=== PATIENT | female | born 1950 | race Caucasian/White ===

== ENCOUNTER 2019-06-01 11:59 | Inpatient (IN) | payer MEDICARE ==
[~2019-06-01] VITALS: Ht 152.4 cm; Wt 94.8 kg
[~2019-06-01 11:59] MED LIST: ASPIRIN81 M1 PO; GLUCOPHAGE500 MG PO
[2019-06-01] MEDS ORDERED: OCTREOTIDE ACETATE 0.1 MG/ML 100MCG AMP IV STA (12:16)
[2019-06-01] MEDS ORDERED: PANTOPRAZOLE 40 MG 10ML VIAL IV STA (12:16)
--- NOTE | 2019-06-01 12:25 | NUR ---
PATIENT PLACED IN ROOM 5
[2019-06-01] MEDS ORDERED: PROTONIX 200MG/SODIUM CHLORIDE 0.9% 250 ML BAG IV SCH (12:30)
--- NOTE | 2019-06-01 13:22 | Diagnostic Imaging Report ---
Exam: KUB - 2 views Indication: Upper GI bleed Comparison: None Findings: Nonobstructive bowel gas pattern. No free air. Status post cholecystectomy. Mild degenerative changes of the visualized spine and both hip joints. No acute osseous injury. Impression: Nonobstructive bowel gas pattern. No free air. Signed by: Amos Ling MD on 06/01/2019 1:19 PM
[2019-06-01 13:39] LABS: BASOPHILS % 0.2 % (0.0-1.0); EOSINOPHILS # (AUTO) 0.1 (0.0-0.4); EOSINOPHILS % 1.3 % (0.0-6.0); HEMOGLOBIN 7.9 g/dL (12.0-16.0); LYMPHOCYTES % 18.8 % (18.0-39.1); MEAN CORPUSCULAR HEMOGLOBIN 31.9 pg (28-32); MEAN CORPUSCULAR HGB CONC 32.9 g/dL (31-35); MEAN CORPUSCULAR VOLUME 96.8 fL (81-99); MONOCYTES # (AUTO) 0.9 (0.2-0.8); MONOCYTES % 7.9 % (4.4-11.3); NEUTROPHILS # (AUTO) 7.6 (2.1-6.9); NEUTROPHILS % 70.8 % (38.7-80.0); PLATELET COUNT 305 x10e3/uL (140-360); RED BLOOD COUNT 2.48 x10e6/uL (3.6-5.1); RED CELL DISTRIBUTION WIDTH 12.9 % (11.7-14.4)
[2019-06-01] MEDS: PANTOPRAZOL 40MG/SOD CHL 0.9% 50 ML IV SCH ×2 (13:44→18:55)
--- NOTE | 2019-06-01 14:01 | NUR ---
REPORT TO CLIVE Samuel
[2019-06-01 14:07] LABS: INR 0.98; PROTHROMBIN TIME 13.5 seconds (11.9-14.5)
[2019-06-01 14:08] LABS: PARTIAL THROMBOPLASTIN TIME 24.9 seconds (23.8-35.5)
[2019-06-01 14:17] LABS: ALANINE AMINOTRANSFERASE 17 IU/L (0-55); ALBUMIN 3.5 g/dL (3.5-5.0); ALBUMIN/GLOBULIN RATIO 1.2 (0.8-2.0); ALKALINE PHOSPHATASE 47 IU/L (40-150); ANION GAP 13.9 mmol/L (8-16); BLOOD UREA NITROGEN 16 mg/dL (7-26); BUN/CREATININE RATIO 18 (6-25); CALCIUM 9.2 mg/dL (8.4-10.2); CARBON DIOXIDE 24 mmol/L (22-29); CHLORIDE 97 mmol/L (98-107); CREATININE, SERUM 0.91 mg/dL (0.57-1.11); EST GLOMERULAR FILTRATION RATE > 60 ML/MIN (60-); GLUCOSE 121 mg/dL (74-118); POTASSIUM 3.9 mmol/L (3.5-5.1); SODIUM 131 mmol/L (136-145)
--- NOTE | 2019-06-01 14:35 | NUR ---
Report received from YONNY Scott. Pt sitting comfortably on stretcher. Pt remains on NIBP, pulse ox and cardiac monitoring. Vitals stable. Bed locked in lowest position. Fall precautions in place. Nephew at bedside. WIll continue to monitor.
[2019-06-01] MEDS ORDERED: LEVOTHYROXINE25 MCG PO (15:40)
[2019-06-01] MEDS ORDERED: GLIPIZIDE ER2.5 MG PO (15:40)
[2019-06-01] MEDS ORDERED: DONEPEZIL HCL23 MG PO (15:40)
[2019-06-01] MEDS ORDERED: LISINOPRIL10 MG PO (15:40)
[2019-06-01] MEDS ORDERED: ATORVASTATIN CA20 MG PO (15:40)
--- NOTE | 2019-06-01 17:10 | NUR ---
Pt brought to the restroom in wheelchair. Pt tolerated well.
[2019-06-01 19:49] LABS: HEMOGLOBIN 7.4 g/dL (12.0-16.0)
--- NOTE | 2019-06-02 00:30 | NUR ---
RECEIVED BEDSIDE REPORT FROM Adi BURNS RN.
--- NOTE | 2019-06-02 00:30 | NUR ---
Bedside shift report given to YONNY Geiger. Pt sitting in bed comfortably. RR even and unlabored. NAD noted. Vitals stable. Pt denies any pain or discomfort at the present time.
[2019-06-02 01:14] LABS: HEMOGLOBIN 7.2 g/dL (12.0-16.0)
[2019-06-02] MEDS ORDERED: SODIUM CHLORIDE 0.9% 250ML 250 ML IV ONE (02:15)
[2019-06-02] MEDS: PANTOPRAZOL 40MG/SOD CHL 0.9% 50 ML IV SCH ×5 (03:35→20:33)
--- NOTE | 2019-06-02 04:45 | NUR ---
ASSISTED PT TO RESTROOM. SMALL AMOUNT OF STOOL NOTED. STOOL DARK BROWN IN COLOR.
--- NOTE | 2019-06-02 04:50 | NUR ---
ASSISTED PT BACK TO BED. PT LAYING COMFORTABLY. PT GIVEN WARM BLANKETS. NO ACUTE DISTRESS NOTED AT THIS TIME. HOSPITAL BED LOCK AND LOW IN POSITION. HEAD SIDE RAILS UP AND CALL LIGHT GIVEN TO PT IF IN NEED OF ASSISTANCE.
--- NOTE | 2019-06-02 06:40 | NUR ---
PT ASSISTED TO RESTROOM USING WHEELCHAIR. PT HAD SMALL BM. SMALL SMEAR OF BRIGHT RED BLOOD NOTED ON TOILET PAPER.
--- NOTE | 2019-06-02 06:45 | NUR ---
ASSISTED PT BACK TO HOSPITAL BED USING WHEELCHAIR. PT ASSISTED INTO BED. NO ACUTE DISTRESS NOTED AT THIS TIME. PT LAYING IN BED COMFORTABLY. BED IS LOCKED AND IN LOWEST POSITION.
[2019-06-02 06:55] LABS: HEMATOCRIT 22.4 % (34.2-44.1)
[2019-06-02 07:01] LABS: BLOOD UREA NITROGEN 13 mg/dL (7-26); BUN/CREATININE RATIO 14 (6-25); CALCIUM 8.8 mg/dL (8.4-10.2); CARBON DIOXIDE 23 mmol/L (22-29); CHLORIDE 101 mmol/L (98-107); EST GLOMERULAR FILTRATION RATE > 60 ML/MIN (60-); GLUCOSE 125 mg/dL (74-118); SODIUM 134 mmol/L (136-145)
--- NOTE | 2019-06-02 07:05 | NUR ---
SON HERE; EDUARD DEUTSCH REGARDING H/H DROP; VSS.
--- NOTE | 2019-06-02 07:10 | NUR ---
REPORT GIVEN TO Alexandra BAÑUELOS RN DAY SHIFT NURSE.
--- NOTE | 2019-06-02 07:23 | NUR ---
SPOKE WITH DR Saravanan DEUTSCH AND OK TO GIVE 2 UNITS PRBC'S AND KEEP NPO AND WILL EGD PT TODAY.
[2019-06-02] MEDS ORDERED: SODIUM CHLORIDE 0.9% 250ML 250 ML ONE ×2 (08:26→16:06)
--- NOTE | 2019-06-02 08:27 | NUR ---
CONSENT SIGNED ON CHART/PRBC AND ENDO
[2019-06-02] MEDS ORDERED: MIDAZOLAM HCL 2 MG/2 ML VIAL ONE (08:51)
[2019-06-02] MEDS ORDERED: FENTANYL CITRATE/PF 100MCG/2 ML INJ ONE (08:51)
[2019-06-02] MEDS ORDERED: PROPOFOL IV EMULSION 10 MG/ML 50 ML VIAL ONE (08:58)
[2019-06-02] MEDS ORDERED: DEXTROSE 50% SYRINGE 50 ML IV PRN (13:15)
--- OUTSIDE RECORDS SUMMARY | 2019-06-02 14:05 | XMS REPORT ---
Author Author [facility] Address Unknown Phone Unavailable Care Team Providers Care Cut File Clerk Name Role Phone Ervin OSPINA Unavailable Unavailable Problems This patient has no known problems. Allergies, Adverse Reactions, Alerts This patient has no known allergies or adverse reactions. Medications This patient has no known medications. Results Test Description Test Time Test Comments Text Results Atomic Results Result Comments ABDOMEN-1VIEW ([facility]) 2019-06-01 13:18:[address] [address] Patient Name: RAYMOND PEREA MR #: [id number] : 1950 Age/Sex: 69/F Req #: [id number] Adm Physician: Ordered by: ROSALINDA OSPINA MD Report #: [id number] Location: ER Room/Bed: Procedure: [id number] DX/ABDOMEN-1VIEW ([facility]) Exam Date: 06/01/19 Exam Time: 1230 REPORT STATUS: Signed Exam: KUB - 2 views Indication: Upper GI bleed Comparison: None Findings: Nonobstructive bowel gas pattern. No free air. Status post cholecystectomy. Mild degenerative changes of the visualized spine and both hip joints. No acute osseous injury. Impression: Nonobstructive bowel gas pattern. No free air. Signed by: Destini Larson MD on 06/01/2019 1:19 PM Dictated By: DESTINI LARSON MD 131 Transcribed By: WASHINGTON on 06/01/191318 COPY TO: ROSALINDA OSPINA MD
--- NOTE | 2019-06-02 15:54 | NUR ---
Received patient at this time s/p EGD with 2 ulcers found per reporting nurse. Patient with Anemia and GI bleed, H/H 7.0, had 1 PRBC and 1 unit left to give, VSS, no c/o pains, ambulatory, PMH significant for HTN, chronic back pain, non-contributory at this time, IV line in place, will monitor.
[2019-06-02 16:10] VITALS: BP 142/64
[2019-06-02] MEDS: LISINOPRIL 10 MG TAB PO SCH (16:12)
[2019-06-02] MEDS: METFORMIN HCL 500 MG TAB PO SCH (16:13)
[2019-06-02] MEDS: INSULIN REGULAR, HUMAN 100 UNIT/1 ML 3ML VIAL SQ SCH ×2 (16:13→20:40)
[2019-06-02 16:23] VITALS: BP 142/64
[2019-06-02] MEDS ORDERED: METFORMIN HCL 500 MG PO SCH (17:00)
--- NOTE | 2019-06-02 17:13 | NUR ---
Noted PRBC cancelled, call to lab and confirmed second unit was cancelled. Call to attending at this time to clarify if to give or to hold
--- NOTE | 2019-06-02 17:23 | NUR ---
Call back from Dr. Navarro covering for Dr. Larios to clarify on PRBC second unit and he wants a CBC drawn in the morning and if Hgb is not >7.0 to hold unit
[2019-06-02 18:20] LABS: HEMATOCRIT 25.5 % (34.2-44.1); HEMOGLOBIN 8.1 g/dL (12.0-16.0)
--- NOTE | 2019-06-02 19:15 | NUR ---
Received patient awake, not in distress, call light within easy reach, advised to call anytime, will continue to monitor
[2019-06-02 20:00] VITALS: BP 119/51
--- NOTE | 2019-06-02 20:11 | Operative Report ---
DATE OF PROCEDURE: 06/02/2019 SURGEON: David Larios MD PROCEDURE: EGD with biopsies. INDICATIONS FOR EGD: Melena, anemia. MEDICATIONS: The patient was done under MAC. Please see anesthesiologist's note. DESCRIPTION OF PROCEDURE: With the patient in left lateral decubitus position, a flexible fiberoptic Olympus gastroscope was introduced into the esophagus under direct visualization without any difficulty. There was some patchy erythema noted in distal esophagus. The scope was then advanced with ease into the stomach. Mucosa overlying the antrum and the body revealed some patchy erythema, [id number]-pf-rzqqobtz edema and biopsies were obtained and sent to stain for H pylori. Two ulcers were noted in the distal antrum. The largest was approximately 8 mm in size both with heaped up margins without active bleeding or stigmata of recent hemorrhage. The pylorus was of normal contour and shape, was intubated with ease and the scope was advanced all the way to the second portion of the duodenum. The scope was then withdrawn slowly. Mucosa overlying the proximal second portion and the duodenal bulb appeared to be within normal limits. The scope was then withdrawn back into the stomach and retroflexed. Mucosa overlying the fundus and cardia appeared to be within normal limits. The scope was then straightened out. It was subsequently withdrawn. The patient tolerated the procedure well. IMPRESSION: 1. Mild distal esophagitis. 2. Gastritis, biopsied. Biopsies sent to stain for Helicobacter pylori. 3. Gastric ulcers, antrum x2 with the largest approximately 8 mm in size. Both with heaped up margins without active bleeding or stigmata of recent hemorrhage. PLAN: Follow up histology. Continue current therapy. Initiate clear liquid diet. David Larios MD [facility] [place]AIXA /[id number] cc: Yasmany Larios MD
[2019-06-02] MEDS: DONEPEZIL HCL 23 MG PO SCH (20:36)
[2019-06-02 21:00] VITALS: BP 119/51
[2019-06-02 23:28] LABS: HEMATOCRIT 23.5 % (34.2-44.1); HEMOGLOBIN 7.5 g/dL (12.0-16.0)
[2019-06-03] VITALS (7 sets, daily range): BP systolic 111–134; BP diastolic 53–61
--- NOTE | 2019-06-03 | NUR ---
Dr. Larios came, no new orders
[2019-06-03] MEDS: PANTOPRAZOL 40MG/SOD CHL 0.9% 50 ML IV SCH ×5 (01:14→20:00)
[2019-06-03] MEDS: LEVOTHYROXINE SODIUM 50 MCG TAB PO SCH (06:12)
[2019-06-03 06:17] LABS: HEMATOCRIT 24.2 % (34.2-44.1); HEMOGLOBIN 7.9 g/dL (12.0-16.0)
--- NOTE | 2019-06-03 07:20 | NUR ---
Patient is alert, no active bleeding noted, will continue to monitor closely
[2019-06-03] MEDS: INSULIN REGULAR, HUMAN 100 UNIT/1 ML 3ML VIAL SQ SCH ×4 (07:30→21:00)
[2019-06-03] MEDS: GLIPIZIDE 5 MG TAB ER PO SCH (07:30)
[2019-06-03] MEDS: METFORMIN HCL 500 MG TAB PO SCH ×2 (08:00→17:18)
--- NOTE | 2019-06-03 08:19 | NUR ---
Obtained orders for IV fluids from attending given NPO status
[2019-06-03] MEDS: LISINOPRIL 10 MG TAB PO SCH (08:32)
[2019-06-03] MEDS ORDERED: LEVOTHYROXINE SODIUM 25 MCG TABLET PO SCH (09:00)
[2019-06-03] MEDS ORDERED: GLIPIZIDE 2.5 MG TABCR PO SCH (09:00)
[2019-06-03] MEDS: ATORVASTATIN 20 MG TAB PO SCH (09:47)
[2019-06-03] MEDS: DEXTROSE 5%/0.45% SOD CHL 1,000 ML IV SCH ×2 (09:47→21:00)
--- NOTE | 2019-06-03 11:41 | NUR ---
Rounds done, patient ok to have colonoscopy OP. Awaiting MD rounds for DC
--- NOTE | 2019-06-03 13:49 | NUR ---
Patient with a lot of diarrhea this morning, notified Dr. Navarro, completing rounds at this time and will place orders.
[2019-06-03] MEDS ORDERED: LOPERAMIDE HCL 2 MG CAP PO PRN (16:15)
--- NOTE | 2019-06-03 17:16 | Progress Note ---
DATE: Internal Medicine Progress Note SUBJECTIVE: The patient is doing well except for diarrhea. OBJECTIVE: HEART: Regular rhythm. Normal S1, S2 sound. LUNGS: Clear bilaterally. ABDOMEN: Soft. EXTREMITIES: Show no evidence of cyanosis or hematoma. VITAL SIGNS: Blood pressure 122/53, temperature 96.4, heart rate 64 per minute, respiratory rate 18 per minute, and oxygen saturation 98%. LABORATORY DATA: On the blood work on the BMP; sodium 134, potassium 4.0, chloride 101, CO2 23, BUN 13, and creatinine 0.90. Glucose 125. On CBC, white blood count 10.7, hemoglobin 9.0, hematocrit 28.0, and platelet count 305,000. PT 13.5. INR was 0.98. PTT 24.9. AST 14 and ALT 17. Total bilirubin 0.4. Alkaline phosphatase 47. ASSESSMENT: 1. Acute anemia secondary to gastrointestinal bleed. 2. Gastric bleed. 3. Hypertension. 4. Uncontrolled diabetes mellitus type 2. 5. Hypothyroidism. PLAN OF TREATMENT: 1. We are going to continue monitoring hemoglobin and hematocrit. The patient already had an EGD which showed gastritis, gastric ulcers, and mild distal esophagitis with no active GI bleed. She is going to have a colonoscopy apparently. 2. Continue Protonix IV. Continue IV fluids at 80 mL an hour, continue Lipitor 20 mg daily. Glipizide 10 mg daily. Lisinopril 10 mg daily. Levothyroxine 50 mcg daily. Continue monitoring blood sugar before meals and at bedtime. Metformin 500 mg twice a day. Hemoglobin and hematocrit so far stable. MD RUIZ Galeano/AXIA /[id number]
[2019-06-03 17:55] LABS: HEMATOCRIT 25.7 % (34.2-44.1); HEMOGLOBIN 8.3 g/dL (12.0-16.0)
--- NOTE | 2019-06-03 18:59 | NUR ---
Patient OOB and ambulated several times, diarrhea episodes subsiding, no hematochezia noted, no nausea, tolerated clear liquid diet, in bed at this time and call light within reach, will monitor.
[2019-06-03] MEDS: DONEPEZIL HCL 23 MG PO SCH (20:00)
[2019-06-04] VITALS: BP 124/58
--- NOTE | 2019-06-04 | NUR ---
PATIENT COMPLAINED OF SOME SWELLING, TENDERNESS TO LEFT AND RIGHT AC IV SITE. IV REMOVED WITH TIP INTACT. NEW IV 22G STARTED ON RIGHT WRIST.
[2019-06-04 00:09] LABS: HEMOGLOBIN 7.5 g/dL (12.0-16.0)
[2019-06-04 00:10] LABS: HEMATOCRIT 22.6 % (34.2-44.1)
--- NOTE | 2019-06-04 00:25 | NUR ---
DR. Saravanan DEUTSCH DOING ROUNDS. NEW ORDER RECEIVED FOR GI SOFT DIET
[2019-06-04] MEDS: PANTOPRAZOL 40MG/SOD CHL 0.9% 50 ML IV SCH ×4 (01:10→15:55)
[2019-06-04 04:00] VITALS: BP 133/63
--- NOTE | 2019-06-04 04:10 | NUR ---
RIGHT WRIST IV SITE STARTED SWELLING. IV REMOVED WITH TIP INTACT. PRESSURE DRESSING APPLIED. ELEVATED WITH PILLOW. NEW IV 20G STARTED ON RIGHT FA.
[2019-06-04 06:03] LABS: HEMATOCRIT 24.1 % (34.2-44.1); HEMOGLOBIN 7.7 g/dL (12.0-16.0)
[2019-06-04] MEDS: LEVOTHYROXINE SODIUM 50 MCG TAB PO SCH (06:05)
[2019-06-04] MEDS: DEXTROSE 5%/0.45% SOD CHL 1,000 ML IV SCH (06:06)
--- NOTE | 2019-06-04 07:00 | NUR ---
RECEIVED PATIENT AWAKE RESTING IN BED NO S/S OF DISTRESS. BED LOW, WHEELS LOCKED, SIDE RAILS X2. CALL LIGHT IN REACH WILL CONTINUE TO MONITOR PATIENT.
[2019-06-04] MEDS: INSULIN REGULAR, HUMAN 100 UNIT/1 ML 3ML VIAL SQ SCH ×2 (07:30→11:30)
[2019-06-04] MEDS: GLIPIZIDE 5 MG TAB ER PO SCH (07:30)
[2019-06-04 08:00] VITALS: BP 124/78
[2019-06-04] MEDS: METFORMIN HCL 500 MG TAB PO SCH (08:00)
[2019-06-04] MEDS: ATORVASTATIN 20 MG TAB PO SCH (08:55)
[2019-06-04] MEDS: LISINOPRIL 10 MG TAB PO SCH (08:55)
[2019-06-04 10:11] VITALS: BP 124/78
[2019-06-04 11:56] VITALS: BP 131/61
[2019-06-04] MEDS ORDERED: PANTOPRAZOLE SO40 MG PO (13:20)
--- NOTE | 2019-06-04 14:05 | NUR ---
Visit made by the Spiritual Care Department Pastoral Visitor, Marissa Phillips. PV provided pastoral presence, prayer, hospitality, and supportive listening. Pastoral Visitor informed pt/family of the scope of Newsp[employer] Services and availability. SUBHASH HOYOS Supervisory Historian Spiritual Care Department O: [phone] Pager: [phone] ([phone] number calling from)
--- NOTE | 2019-06-04 15:10 | NUR ---
REMOVED PATIENTS IV. CATHETER TIP INTACT AND PRESSURE DRESSING APPLIED.
--- NOTE | 2019-06-04 16:50 | NUR ---
PATIENT DISCHARGE FROM FACILITY. PATIENT GATHERED ALL PERSONAL BELONGINGS, DISCHARGE INSTRUCTIONS, AND FOLLOW UP INFORMATION. PATIENT LEFT UNIT IN WHEELCHAIR AND WENT HOME VIA PRIVATE AUTO. NO SIGNS OF DISTRESS WHEN LEAVING FACILITY.
--- NOTE | 2019-06-04 17:18 | Discharge Summary ---
HISTORY OF PRESENT ILLNESS: The patient is 69-year-old female with past medical history positive for hypertension, diabetes, hypothyroidism, came with weakness, shortness of breath. Hemoglobin was low, she received blood transfusion. She had an EGD done by Dr. David Larios, which showed gastric ulcer, gastritis, mild distal esophagitis. No evidence of any active bleeding. Hemoglobin and hematocrit remained stable. The patient is going to have a colonoscopy as an outpatient. The patient us released to go home by Dr. David Larios. PHYSICAL EXAMINATION: HEART: Showed regular rhythm. Normal S1, S2 sound. LUNGS: Clear bilaterally. ABDOMEN: Soft. VITAL SIGNS: Blood pressure 131/61, temperature 96.6, heart rate 74 per minute, respiratory rate 20 per minute, and oxygen saturation 99%. LABORATORY DATA: On the BMP; sodium 134, potassium 4.0, chloride 101, CO2 of 23, BUN 13, creatinine 0.90, glucose 125. On CBC; white blood count 10.7, hemoglobin 7.7, hematocrit 24.1, and platelet count 395,000. PT 13.5, INR 0.98, PTT 24.9. AST 14, ALT 17, total bilirubin 0.4, alkaline phosphatase 47. IMPRESSION: 1. Upper gastrointestinal bleed, most likely secondary to gastric ulcer. 2. Uncontrolled diabetes mellitus type 2. 3. Hypertension. 4. Hypothyroidism. PLAN OF TREATMENT: Continue Protonix 40 mg twice a day, Lipitor 20 mg daily, glipizide 10 mg daily, lisinopril 10 mg daily, levothyroxine 50 mcg daily, metformin 500 mg twice a day. The patient is going to be discharged today. Follow up with Dr. Yasmany Larios and Dr. David Larios as an outpatient. MD RUIZ Galeano/AIXA /[id number]
== END 2019-06-04 16:50 | disposition home or self-care (01) | DRG 378 ==
LOC: ER 12:13 → ERHOLD 14:36 → MED/SURG 06-02 15:52
PROC: 30233N1 Transfusion of Nonautologous Red Blood Cells into Peripheral Vein, Percutaneous Approach (ICD-10-PCS; principal; 2019-06-01)
PROC: 0DB78ZX Excision of Stomach, Pylorus, Via Natural or Artificial Opening Endoscopic, Diagnostic (ICD-10-PCS; 2019-06-02)
DX: K25.4 Chronic or unspecified gastric ulcer with hemorrhage (principal); D62 Acute posthemorrhagic anemia; E11.65 Type 2 diabetes mellitus with hyperglycemia; E03.9 Hypothyroidism, unspecified; I10 Essential (primary) hypertension; K20.9 Esophagitis, unspecified; K29.70 Gastritis, unspecified, without bleeding
CPT/HCPCS: 36415; 43239; 74018; 80048; 80053; 82270; 82948; 85014; 85018; 85025; 85610; 85730; 86850; 86900; 86920; 88305; 88312; 96360; 99285; J2250; J2354; J3010; J7050; P9016

== ENCOUNTER 2019-06-16 01:57 | Inpatient (IN) | payer MEDICARE, OTHER ==
[~2019-06-16] VITALS: Ht 154.9 cm; Wt 108.4 kg
[2019-06-16] VITALS (8 sets, daily range): BP systolic 91–111; BP diastolic 31–97
[~2019-06-16 01:57] MED LIST changes: +ATORVASTATIN CA20 MG PO; +DONEPEZIL HCL23 MG PO; +GLIPIZIDE ER2.5 MG PO; +LEVOTHYROXINE25 MCG PO; +LISINOPRIL10 MG PO; +PANTOPRAZOLE SO40 MG PO
[2019-06-16] MEDS ORDERED: DEXTROSE 5%/0.45% SOD CHL 1,000 ML IV STA (02:02)
--- NOTE | 2019-06-16 02:20 | NUR ---
1ST ATTEMPT TO OBTAIN URINE USING STRAIGHT CATH. LESS THAN 5 CC URINE OUTPUT. ER MD NOTIFIED AND AWARE.
[2019-06-16] MEDS ORDERED: SODIUM CHLORIDE 0.9% 1000ML 1,000 ML IV SCH ×2 (02:30→03:00)
[2019-06-16 02:40] LABS: BASOPHILS % 0.2 % (0.0-1.0); EOSINOPHILS % 0.5 % (0.0-6.0); HEMATOCRIT 24.4 % (34.2-44.1); LYMPHOCYTES # (AUTO) 0.3 (1.0-3.2); LYMPHOCYTES % 5.6 % (18.0-39.1); MEAN CORPUSCULAR HGB CONC 32.8 g/dL (31-35); MEAN CORPUSCULAR VOLUME 94.6 fL (81-99); MONOCYTES # (AUTO) 0.4 (0.2-0.8); MONOCYTES % 7.5 % (4.4-11.3); NEUTROPHILS # (AUTO) 4.9 (2.1-6.9); NEUTROPHILS % 85.5 % (38.7-80.0); PLATELET COUNT 139 x10e3/uL (140-360); RED BLOOD COUNT 2.58 x10e6/uL (3.6-5.1); RED CELL DISTRIBUTION WIDTH 13.4 % (11.7-14.4)
[2019-06-16 02:57] LABS: ALANINE AMINOTRANSFERASE 14 IU/L (0-55); ALBUMIN 2.9 g/dL (3.5-5.0); ALKALINE PHOSPHATASE 39 IU/L (40-150); ANION GAP 17.8 mmol/L (8-16); BLOOD UREA NITROGEN 40 mg/dL (7-26); BUN/CREATININE RATIO 5 (6-25); CALCIUM 7.7 mg/dL (8.4-10.2); CARBON DIOXIDE 22 mmol/L (22-29); CHLORIDE 94 mmol/L (98-107); CREATINE KINASE 81 IU/L (29-168); CREATININE, SERUM 8.72 mg/dL (0.57-1.11); EST GLOMERULAR FILTRATION RATE 5 ML/MIN (60-); GLUCOSE 96 mg/dL (74-118); POTASSIUM 4.8 mmol/L (3.5-5.1); SODIUM 129 mmol/L (136-145)
[2019-06-16 03:13] LABS: ALBUMIN/GLOBULIN RATIO 0.9 (0.8-2.0)
--- NOTE | 2019-06-16 04:08 | Diagnostic Imaging Report ---
EXAMINATION: CHEST SINGLE (PORTABLE) INDICATION: Weakness, hypotension COMPARISON: None FINDINGS: TUBES and LINES: None. LUNGS: Lungs are well inflated. No consolidations. Mild central bronchial wall thickening. Mild central pulmonary vascular prominence. PLEURA: No pleural effusion or pneumothorax. HEART AND MEDIASTINUM: The cardiomediastinal silhouette is unremarkable. BONES AND SOFT TISSUES: No acute osseous lesion. Soft tissues are unremarkable. UPPER ABDOMEN: No free air under the diaphragm. IMPRESSION: Mild central pulmonary vascular congestion. Mild central bronchial wall thickening can be seen with bronchitis or early pulmonary interstitial edema. Signed by: Ruel Shabazz DO on 06/16/2019 4:05 AM
[2019-06-16 04:19] LABS: ANION GAP 16.7 mmol/L (8-16); CALCIUM 7.3 mg/dL (8.4-10.2); CREATININE, SERUM 8.38 mg/dL (0.57-1.11); POTASSIUM 4.7 mmol/L (3.5-5.1)
--- NOTE | 2019-06-16 04:21 | NUR ---
PT PLACED ON HOSPITAL BED FOR COMFORT MEASURES.
--- NOTE | 2019-06-16 04:30 | NUR ---
Edison holloway in EDM - 06/16/19 at 0529 by IGNACIO STOPPED 2 LITER NS BOLUSES AT THIS TIME PER ER MD ORDERS.
--- NOTE | 2019-06-16 04:30 | NUR ---
STOPPED 2 LITER NS BOLUS AT THIS TIME PER ER MD ORDERS.
--- NOTE | 2019-06-16 04:35 | NUR ---
DR. WINN AT BEDSIDE DISCUSSING PLAN OF CARE TO PT.
[2019-06-16] MEDS ORDERED: DEXTROSE 50% SYRINGE 50 ML IV PRN (05:00)
[2019-06-16 05:20] LABS: BILIRUBIN,URINE NEGATIVE (NEGATIVE); CLARITY,URINE CLOUDY (CLEAR); COLOR,URINE YELLOW (YELLOW); KETONES,URINE NEGATIVE (NEGATIVE); LEUKOCYTE ESTERASE ,URINE SMALL (NEGATIVE); NITRITE,URINE NEGATIVE (NEGATIVE); PROTEIN,URINE DIPSTICK 2+ (NEGATIVE); URINE UROBILINOGEN 0.2 mg/dL (0.2 - 1)
[2019-06-16 05:29] LABS: AMORPHOUS SEDIMENT,URINE MANY (FEW); BACTERIA,URINE MANY /HPF; EPITHELIAL CELLS,URINE MODERATE /LPF
[2019-06-16] MEDS ORDERED: LEVOFLOXACIN 500MG/D5W 100ML 100 ML IV ONE (06:00)
[2019-06-16] MEDS: CEFTRIAXONE SOD 1 GM/NS 50 ML 50 ML IV ONE (06:12)
[2019-06-16] MEDS ORDERED: ACETAMINOPHEN 325 MG TAB PO ONE (06:30)
--- NOTE | 2019-06-16 07:05 | NUR ---
BEDSIDE REPORT GIVEN TO Anthony CARRINGTON LVN.
--- NOTE | 2019-06-16 07:06 | NUR ---
RECEIVED REPORT FROM OFF GOING NURSE. PATIENT IN HOSPITAL BED. AWAKE AND ALERT. NO S/S OF ACUTE DISTRESS. RESP EVEN AND NONLABORED. IV FLUIDS ORDERED. BED DOWN, CALL LIGHT IN REACH, PENDING ROOM FOR ADMISSION.
[2019-06-16] MEDS: INSULIN REGULAR, HUMAN 100 UNIT/1 ML 3ML VIAL SQ SCH ×4 (08:10→20:14)
[2019-06-16 10:53] LABS: INR 1.11; PROTHROMBIN TIME 14.8 seconds (11.9-14.5)
[2019-06-16] MEDS ORDERED: DEXTROSE 5%/0.9% SOD CHL 1,000 ML IV SCH (12:30)
[2019-06-16] MEDS ORDERED: HEPARIN SOD (PORCINE) 1000 UNIT/ML 10ML MDV INJ ONE (15:45)
[2019-06-16] MEDS ORDERED: HEPARIN SOD (PORCINE) 1000 UNIT/ML 10ML MDV IV ONE (15:45)
[2019-06-16] MEDS ORDERED: HEPARIN SOD (PORCINE) 5,000 UNIT/ML VIAL ONE (15:50)
--- NOTE | 2019-06-16 16:02 | Consultation ---
DATE OF CONSULTATION: 06/16/2019 Renal Consultation REASON FOR CONSULTATION: Acute kidney injury. HISTORY OF PRESENT ILLNESS: A 69-year-old female with history of diabetes and hypertension, who was admitted recently for GI bleed, presented to [facility] with hypoglycemia. The patient is a poor historian and states that approximately 2 weeks prior, she was seen by her primary care physician and given ciprofloxacin for urinary tract infection. The patient since that time has not felt well. She has had decreased urine output, positive anorexia, positive nausea, and generalized weakness. The patient denies taking anything else [id number]-[id number] including NSAIDs. The patient was found to have acute kidney injury with a creatinine of 8.38 and Nephrology consultation was called. REVIEW OF SYSTEMS: A 14-point review of systems completed. All systems negative other than mentioned in the HPI above. PAST MEDICAL HISTORY: 1. Hypertension. 2. Diabetes. 3. Hypothyroidism. 4. Recent GI bleed. 5. Dyslipidemia. PAST SURGICAL HISTORY: Cholecystectomy. SOCIAL HISTORY: No tobacco. No alcohol. No IV drugs. FAMILY HISTORY: No family history of kidney disease. ALLERGIES: NO KNOWN DRUG ALLERGIES. CURRENT MEDICATIONS: See list. PHYSICAL EXAMINATION: VITAL SIGNS: Blood pressure 115/43, pulse 64, respiratory rate 20, and temperature 98.4. GENERAL: No apparent distress. HEENT: Oropharynx clear. No scleral icterus. No peripheral edema. NECK: Supple. Difficult to assess jugular venous pressure. CHEST: Clear to auscultation anteriorly bilaterally. CARDIOVASCULAR: Regular rhythm. No murmurs or rubs. ABDOMEN: Soft. Positive bowel sounds. No tenderness. No rebound. EXTREMITIES: 1+ pitting edema. No clubbing. No cyanosis. SKIN: Warm. LABORATORY DATA: Sodium 129, potassium 4.7, chloride 97, CO2 20, BUN 40, creatinine 8.38, and calcium 7.3. White count 5.73, hemoglobin 8, hematocrit 24, and platelets 139. IMAGING: Chest x-ray, vascular congestion. ASSESSMENT AND PLAN: 1. Acute kidney injury of unclear etiology. Possibilities include acute interstitial nephritis from ciprofloxacin or glomerulonephritis. The patient had a creatinine of 0.9 on 06/02/2019. At this time, the patient is uremic with volume overload. We will initiate hemodialysis. We will check renal ultrasound. We will check urine studies as well as serologies. Hesitant to start prednisone at this time, as the patient just had recent gastrointestinal bleed. 2. Volume overload. Discontinue IV fluids. We will ultrafiltrate with hemodialysis. 3. Hyponatremia. We will correct with hemodialysis secondary to renal failure. 4. Diabetes. Hypoglycemia secondary to oral agents, discontinued. Monitor sugars frequently. MD IVETTE Yu/MODL /[id number]
--- NOTE | 2019-06-16 16:20 | Diagnostic Imaging Report ---
EXAM: Renal Ultrasound INDICATION: ^sha ^[id number] ^[id number] COMPARISON: None TECHNIQUE: Transverse and longitudinal images of the kidneys and bladder were obtained. FINDINGS: Limited study due to large patient body habitus. Right Kidney: Length: 11.4 cm Appearance: Normal echogenicity. Collecting system: No hydronephrosis Stones: None Cyst/Mass: None Left Kidney: Length: 10.4 cm Appearance: Normal echogenicity. Collecting system: No hydronephrosis Stones: None Cyst/Mass: None Bladder: Iraheta catheter in the decompressed bladder. IMPRESSION: No hydronephrosis or renal calculi. Signed by: Amos Ling MD on 06/16/2019 4:17 PM
--- NOTE | 2019-06-16 16:23 | Diagnostic Imaging Report ---
PROCEDURE: Non-tunneled temporary dialysis catheter placement Procedural Personnel Attending physician(s): Amos Ling MD Fellow physician(s): None Resident physician(s): None Advanced practice provider(s): None Pre-procedure diagnosis: RAJ Post-procedure diagnosis: Same Indication: Performance of hemodialysis Additional clinical history: None Complications: No immediate complications. IMPRESSION: Insertion of right-sided non-tunneled triple-lumen temporary dialysis catheter. Plan: Chest radiograph to confirm positioning prior to use. PROCEDURE SUMMARY: - Venous access with ultrasound guidance - Non-tunneled central venous catheter insertion. - Additional procedure(s): None PROCEDURE DETAILS: Pre-procedure Consent: Informed consent for the procedure including risks, benefits and alternatives was obtained and time-out was performed prior to the procedure. Preparation (MIPS): The site was prepared and draped using all elements of maximal sterile barrier technique including sterile gloves, sterile gown, cap, mask, large sterile sheet, sterile ultrasound probe cover, hand hygiene and cutaneous antisepsis with 2% chlorhexidine. Medical reason for site preparation exception (MIPS): Not applicable Anesthesia/sedation Level of anesthesia/sedation: No sedation Access Local anesthesia was administered. The vessel was sonographically evaluated and determined to be patent. Real time ultrasound was used to visualize needle entry into the vessel and a permanent image was stored. Vein accessed: Internal jugular vein Access technique: Micropuncture set with 21 gauge needle Catheter placement The access site was dilated and the catheter was placed into the vein over a wire. A sterile dressing was applied. Catheter placed: Bard Trialysis Catheter size (Singaporean): 13 Catheter length (cm): 15 Catheter flush: Heparin (1000 units/mL) Catheter securement technique: Non-absorbable suture Contrast Contrast agent: None Additional Details Additional description of procedure: None Equipment details: None Specimens removed: None Estimated blood loss (mL): Less than 10 Standardized report: [email or web address] Attestation Signer name: Amos Ling MD I attest that I was present for the entire procedure. I reviewed the stored images and agree with the report as written. Signed by: Amos Ling MD on 06/16/2019 4:20 PM
--- NOTE | 2019-06-16 16:25 | Diagnostic Imaging Report ---
EXAMINATION: CHEST SINGLE (PORTABLE) INDICATION: Line placement COMPARISON: Chest radiograph of earlier the same day FINDINGS: LINES/TUBES:Interval placement of nontunneled hemodialysis catheter terminating at the superior cavoatrial junction. LUNGS:The lungs are moderately inflated. Mild central pulmonary vascular congestion. No focal consolidation or morena pulmonary edema. PLEURA:No pleural effusion or pneumothorax. MEDIASTINUM:The cardiomediastinal silhouette appears unchanged in size and shape. BONES/SOFT TISSUES:No acute osseous injury. ABDOMEN:No free air under the diaphragm. IMPRESSION: Interval placement of nontunneled right IJ hemodialysis catheter terminating at the superior cavoatrial junction. Catheter is ready for immediate use. Mild central pulmonary vascular congestion without focal pneumonia or morena pulmonary edema. Signed by: Amos Ling MD on 06/16/2019 4:22 PM
[2019-06-16 17:25] LABS: CREATINE KINASE MB 0.8 ng/mL (0-5.0)
--- NOTE | 2019-06-16 19:49 | NUR ---
Page out to Dr. Cedeno pertaining to clarification of IV fluids since 's note said to d/c iv fluids but no order was put in. Awaiting call back. Addendum: 06/16/19 at 2006 by Ren Wayne RN Dr. Cuenca returned page, new IV fluid orders noted, obtained order for CLAUDE mcdonald.
[2019-06-16] MEDS ORDERED: DEXTROSE 5% 1,000 ML IV SCH (20:00)
[2019-06-16] MEDS ORDERED: ONDANSETRON HCL INJ 2MG/ML 2ML 2 MG/ML VIAL IV PRN (20:00)
[2019-06-16] MEDS ORDERED: MANNITOL 25% 12.5GM/50ML 100 ML ONE (21:13)
[2019-06-16] MEDS ORDERED: SODIUM CHLORIDE 0.9% 1000ML 2,000 ML IV PRN (21:15)
[2019-06-16] MEDS ORDERED: MANNITOL 25% 12.5GM/50 ML VIAL IV PRN (21:15)
[2019-06-16] MEDS ORDERED: HEPARIN SOD (PORCINE) 1000 UNIT/ML SDV IV PRN (21:15)
[2019-06-16] MEDS ORDERED: SODIUM CHLORIDE 0.9% 250ML 500 ML IV PRN (21:15)
[2019-06-17] VITALS (26 sets, daily range): BP systolic 90–135; BP diastolic 29–79
[2019-06-17 04:29] LABS: CREATININE,URINE RANDOM 57.48 mg/dL (47-110); TOTAL PROTEIN, URINE 184.9 mg/dL (1-14)
[2019-06-17 05:07] LABS: BASOPHILS % 0.3 % (0.0-1.0); EOSINOPHILS # (AUTO) 0.1 (0.0-0.4); EOSINOPHILS % 1.7 % (0.0-6.0); LYMPHOCYTES # (AUTO) 0.5 (1.0-3.2); LYMPHOCYTES % 15.1 % (18.0-39.1); MEAN CORPUSCULAR HEMOGLOBIN 29.9 pg (28-32); MEAN CORPUSCULAR HGB CONC 31.4 g/dL (31-35); MEAN CORPUSCULAR VOLUME 95.3 fL (81-99); MONOCYTES # (AUTO) 0.5 (0.2-0.8); MONOCYTES % 13.1 % (4.4-11.3); NEUTROPHILS # (AUTO) 2.5 (2.1-6.9); NEUTROPHILS % 69.5 % (38.7-80.0); PLATELET COUNT 113 x10e3/uL (140-360); RED BLOOD COUNT 2.14 x10e6/uL (3.6-5.1); RED CELL DISTRIBUTION WIDTH 13.6 % (11.7-14.4)
[2019-06-17 05:26] LABS: HEMATOCRIT 20.4 % (34.2-44.1); HEMOGLOBIN 6.4 g/dL (12.0-16.0)
[2019-06-17 05:29] LABS: ALBUMIN 2.2 g/dL (3.5-5.0); ALBUMIN/GLOBULIN RATIO 0.9 (0.8-2.0); ANION GAP 14.8 mmol/L (8-16); CREATININE, SERUM 6.58 mg/dL (0.57-1.11); POTASSIUM 3.8 mmol/L (3.5-5.1)
[2019-06-17 05:31] LABS: CALCIUM 6.9 mg/dL (8.4-10.2)
[2019-06-17 05:54] LABS: FERRITIN 89.07 ng/mL (4.63-204.00)
--- NOTE | 2019-06-17 06:38 | NUR ---
Dr. Cuenca paged to notify of critical labs. Dr. Garcia returned page, ordered for 2 units RBC to be given with dialysis today and will replace calcium at that time also.
[2019-06-17] MEDS ORDERED: SODIUM CHLORIDE 0.9% 250ML 250 ML IV ONE (06:45)
[2019-06-17] MEDS: INSULIN REGULAR, HUMAN 100 UNIT/1 ML 3ML VIAL SQ SCH ×4 (07:06→21:00)
[2019-06-17] MEDS ORDERED: ALBUMIN 25% 12.5GM 50ML 100 ML IV ONE (11:08)
[2019-06-17] MEDS ORDERED: NOREPINEPHRINE 8 MG/D5W 250 ML 250 ML ONE (11:46)
[2019-06-17] MEDS ORDERED: PANTOPRAZOLE SOD 40 MG TABEC PO SCH (12:30)
--- NOTE | 2019-06-17 14:40 | NUR ---
Dr Hawkins notified of new critical care consult via telephone.
--- NOTE | 2019-06-17 19:00 | NUR ---
Bedside report received from Keke Peterson RN. Care plan reviewed, no family present at this time. Pt reports no pain or discomfort at this time.
[2019-06-17] MEDS: DONEPEZIL HCL PO SCH (21:00)
--- NOTE | 2019-06-17 23:45 | NUR ---
Dr. Hawkins present and assessing the pt. No new orders received at this time.
[2019-06-18] VITALS (14 sets, daily range): BP systolic 103–119; BP diastolic 39–59
--- NOTE | 2019-06-18 00:26 | Consultation ---
DATE OF CONSULTATION: Critical Care Consultation REASON FOR CONSULT: ICU management. CHIEF COMPLAINT: The patient was admitted with acute kidney injury. HISTORY OF PRESENT ILLNESS: A 69-year-old female with a history of diabetes, hypertension, was recently admitted with GI bleed, found to be in acute kidney injury and was admitted to ICU. Nephrology was consulted. The patient denies taking any rzzv-hye-zqatpnb and NSAIDs. She had anorexia. On admission, her creatinine was 8.72, went down to 6.58. She underwent hemodialysis and Nephrology evaluation was done. REVIEW OF SYSTEMS: Negative except as in HPI. PAST MEDICAL HISTORY: Diabetes, hypertension, hyperlipidemia. FAMILY AND SOCIAL HISTORY: She does not smoke, does not drink. PHYSICAL EXAMINATION: VITAL SIGNS: Temperature 98, pulse of 58, blood pressure 115/50, respiratory rate of 18. CHEST: Clear to auscultation bilaterally. No wheezing. HEART: S1 and S2 audible. ABDOMEN: Soft. EXTREMITIES: No pedal edema. NEUROLOGIC: Awake and alert. LABORATORY DATA: Sodium 130, potassium 3.8, chloride 97, BUN 24, creatinine 6.58. Chest x-ray reviewed. ASSESSMENT AND PLAN: Ms. Freitas is a 69-year-old female with acute kidney injury, currently getting hemodialysis. Hemodynamically stable. No distress. Continue supportive care. Continue ICU care. The patient will be transferred out of ICU when cleared by Nephrology. MD SOLITARIO Marr/AIXA /[id number]
--- NOTE | 2019-06-18 01:00 | NUR ---
Pts SPO2 89% on FIO2 65%, FIO2 increased to 70% with no response, pt suctioned with no increase to SPO2%, FIO2 increased to 80% and SPO2 increased to 92%. Addendum: 06/18/19 at 0340 by Janet Wilkinson RN Incorrect pt, disregard this note.
--- NOTE | 2019-06-18 01:20 | NUR ---
SPO2 decreased to 85%, pt suctioned and had no increase in SPO2%, FIO2 increased to 100% and SPO2 now 98%. FIO2 will be weaned per O2 protocol as pt improves. Addendum: 06/18/19 at 0341 by Janet Wilkinson RN Incorrect pt, disregard this note.
[2019-06-18 04:07] LABS: EOSINOPHIL SMEAR,URINE NONE SEEN (NONE SEEN)
[2019-06-18 04:59] LABS: EOSINOPHILS # (AUTO) 0.1 (0.0-0.4); EOSINOPHILS % 2.5 % (0.0-6.0); HEMATOCRIT 25.7 % (34.2-44.1); HEMOGLOBIN 8.1 g/dL (12.0-16.0); LYMPHOCYTES # (AUTO) 0.7 (1.0-3.2); LYMPHOCYTES % 17.7 % (18.0-39.1); MEAN CORPUSCULAR HEMOGLOBIN 29.7 pg (28-32); MEAN CORPUSCULAR HGB CONC 31.5 g/dL (31-35); MEAN CORPUSCULAR VOLUME 94.1 fL (81-99); MONOCYTES # (AUTO) 0.5 (0.2-0.8); MONOCYTES % 13.7 % (4.4-11.3); NEUTROPHILS # (AUTO) 2.6 (2.1-6.9); NEUTROPHILS % 65.3 % (38.7-80.0); PLATELET COUNT 118 x10e3/uL (140-360); RED BLOOD COUNT 2.73 x10e6/uL (3.6-5.1)
[2019-06-18 05:19] LABS: ALBUMIN 2.6 g/dL (3.5-5.0); CALCIUM 7.7 mg/dL (8.4-10.2); CREATININE, SERUM 5.18 mg/dL (0.57-1.11)
[2019-06-18] MEDS: LEVOTHYROXINE SODIUM 25 MCG TABLET PO SCH (06:14)
[2019-06-18] MEDS: PANTOPRAZOLE SOD 40 MG TABEC PO SCH ×2 (06:14→16:57)
[2019-06-18] MEDS: INSULIN REGULAR, HUMAN 100 UNIT/1 ML 3ML VIAL SQ SCH ×4 (07:30→21:00)
--- NOTE | 2019-06-18 17:28 | NUR ---
Report called to Radhika BLANCAS. Transferring to room 207. No complications noted.
--- NOTE | 2019-06-18 19:34 | NUR ---
resume care of patient, RN Radhika gave verbal report, advised this nurse that patient if here for hypoglycemia, ARF, new dialysis patient, RAC, LAC IV access, wtih Right IJ dialysis access, patient seen lying in bed AOX3, walker placed at bedside for patient per her request, patient report constipation at this time, will continue to monitor patient, call light within reach, oriented to oncoming staff, bed alarm on for safety
--- NOTE | 2019-06-18 21:00 | NUR ---
c/o constipation X 7 days, MD WOODALL CONSULTING ON PATIENT, Ordered for patient to receive lactulos 30cc Q8H PRN for constipation, dulcolax suppository once now, epogen 18501 units on dialysis days after dialysis, BMP CBC IN THE AM(ON AUG ALREADY ADVISED)
[2019-06-18] MEDS: DONEPEZIL HCL PO SCH (21:07)
[2019-06-18] MEDS ORDERED: LACTULOSE SYRUP 20 GM/30 ML UDC PO PRN ×2 (21:15→23:30)
[2019-06-18] MEDS ORDERED: BISACODYL 10 MG SUPP PR ONE (21:15)
[2019-06-19] VITALS (12 sets, daily range): BP systolic 120–139; BP diastolic 60–70
--- NOTE | 2019-06-19 04:23 | NUR ---
patient able to stand with assist X 1, bedside commode, XXL BM noted, brown semi soft (+) result from one time dose of lactulose, given gil care, placed safely back in bed, while giving care noticed small bleeding bruise on back of right thigh, care given to site, call light placed within reach
[2019-06-19 05:27] LABS: BASOPHILS % 0.4 % (0.0-1.0); EOSINOPHILS # (AUTO) 0.1 (0.0-0.4); EOSINOPHILS % 2.4 % (0.0-6.0); HEMATOCRIT 28.9 % (34.2-44.1); HEMOGLOBIN 9.1 g/dL (12.0-16.0); LYMPHOCYTES # (AUTO) 0.6 (1.0-3.2); MEAN CORPUSCULAR HGB CONC 31.5 g/dL (31-35); MEAN CORPUSCULAR VOLUME 95.4 fL (81-99); MONOCYTES # (AUTO) 0.6 (0.2-0.8); MONOCYTES % 12.4 % (4.4-11.3); NEUTROPHILS # (AUTO) 3.2 (2.1-6.9); NEUTROPHILS % 71.4 % (38.7-80.0); PLATELET COUNT 134 x10e3/uL (140-360); RED BLOOD COUNT 3.03 x10e6/uL (3.6-5.1); RED CELL DISTRIBUTION WIDTH 14.4 % (11.7-14.4)
[2019-06-19] MEDS: LEVOTHYROXINE SODIUM 25 MCG TABLET PO SCH (05:54)
[2019-06-19] MEDS: PANTOPRAZOLE SOD 40 MG TABEC PO SCH ×2 (05:54→17:02)
[2019-06-19 06:07] LABS: ANION GAP 16.9 mmol/L (8-16); CREATININE, SERUM 7.01 mg/dL (0.57-1.11); POTASSIUM 3.9 mmol/L (3.5-5.1)
[2019-06-19] MEDS: INSULIN REGULAR, HUMAN 100 UNIT/1 ML 3ML VIAL SQ SCH ×4 (07:30→20:29)
--- NOTE | 2019-06-19 07:30 | NUR ---
PATIENT IS ALERT AND IN STABLE CONDITION WITH NO S/S OF RESPIRATORY DISTRESS. NO PAIN VOICED. SMALL LACERATION NOTED TO POSTERIOR RIGHT THIGH. PATIENT IS DUE TO HAVE DIALYSIS TODAY. CALL LIGHT IS WITHIN REACH, PATIENT INSTRUCTED TO CALL FOR ASSISTANCE NEEDED.
--- NOTE | 2019-06-19 07:37 | NUR ---
bedside shift report given to Ramone, patient awake alert, participated in shift report, denies pain at this time, incontinence care given during shift change by this RN and Ramone, patient able to turn with assistance, skin warm dry, commode at bedside bed in lowest position, RN ramone made aware of new abrasion on back of right thigh
--- NOTE | 2019-06-19 09:25 | Diagnostic Imaging Report ---
EXAMINATION: CHEST SINGLE (PORTABLE) INDICATION: CHF COMPARISON: Chest radiograph 06/16/2019 FINDINGS: LINES/TUBES:Unchanged right IJ temporary dialysis catheter. LUNGS:The lungs are well-inflated. Central pulmonary vascular congestion without morena pulmonary edema. PLEURA:No pleural effusion or pneumothorax. MEDIASTINUM:The cardiomediastinal silhouette appears unchanged in size and shape. BONES/SOFT TISSUES:No acute osseous injury. ABDOMEN:No free air under the diaphragm. IMPRESSION: No significant interval change. Signed by: Amos Ling MD on 06/19/2019 9:21 AM
--- NOTE | 2019-06-19 09:46 | NUR ---
AIR PUMP APPLIED TO BED. PATIENT C/O BACK PAIN BUT REFUSED ANY PAIN MEDICATION. PATIENT PREPARING TO START DIALYSIS TREATMENT THIS MORNING.
--- NOTE | 2019-06-19 11:07 | NUR ---
CALL TO DR SRINIVASAN, RENAL TO ASK IF PT WILL REQUIRE OP HEMODIALYSIS BUN 23 AND CREAT 7.01 ORDERS TO ARRANGE DIALYSIS AT [facility]
--- NOTE | 2019-06-19 12:15 | NUR ---
CALLED AND SPOKE WITH DR. SRINIVASAN - RECEIVED NEW ORDERS FOR KIDNEY BIOPSY AND TUNNELED DIALYSIS CATHETER.
[2019-06-19] MEDS ORDERED: ONDANSETRON HCL 4 MG ORAL DISINTEGRATING TAB PO PRN (12:45)
--- NOTE | 2019-06-19 15:03 | NUR ---
PATIENT COMPLETED DIALYSIS 2 LITERS REMOVED. PATIENT IN STABLE CONDITION WITH NO S/S OF RESPIRATORY DISTRESS- NO PAIN VOICED. CALL LIGHT IS WITHIN REACH, PATIENT INSTRUCTED TO CALL FOR ASSISTANCE NEEDED.
--- NOTE | 2019-06-19 16:13 | NUR ---
Referral for outpatient HD sent to [facility]. Called and spoke to Shilpa with intake and informed of referral and pt's preference.
--- NOTE | 2019-06-19 18:54 | NUR ---
PATIENT IN STABLE CONDITION WITH NO S/S OF RESPIRATORY DISTRESS. NO PAIN VOICED. PATIENT HAD DIALYSIS TODAY AND HAD TWO LITERS REMOVED. PATIENT HAD FOUR BM'S. PATIENT WILL BE NPO AT MIDNIGHT AND SET FOR TWO PROCEDURES TOMORROW, 06/20/19CALL LIGHT IS WITHIN REACH, PATIENT INSTRUCTED TO CALL FOR ASSISTANCE NEEDED. BEDSIDE REPORT GIVEN TO ONCOMING NURSE.
--- NOTE | 2019-06-19 19:18 | NUR ---
SBAR oncoming shift report received from Deandra, patient s/p dialysis today, 2 liters reported removed, Right IJ site C/D/I, patient awake alert, no respiratory distress noted, skin warm dry, sitting in bed, multiple bowel movement reported today, patient seen in bed, resting, denies pain, call light within reach, patient to have procedure in am, NPO after midnight per order
[2019-06-19] MEDS: EPOETIN ALFA 10000 UNIT/ML VIAL SC SCH (20:50)
[2019-06-19] MEDS: DONEPEZIL HCL PO SCH (20:50)
[2019-06-20] VITALS (12 sets, daily range): BP systolic 123–151; BP diastolic 57–67
[2019-06-20] MEDS: LEVOTHYROXINE SODIUM 25 MCG TABLET PO SCH (05:08)
[2019-06-20] MEDS: PANTOPRAZOLE SOD 40 MG TABEC PO SCH ×2 (05:08→17:01)
[2019-06-20 05:27] LABS: BASOPHILS % 0.2 % (0.0-1.0); EOSINOPHILS # (AUTO) 0.2 (0.0-0.4); EOSINOPHILS % 4.7 % (0.0-6.0); HEMATOCRIT 28.2 % (34.2-44.1); LYMPHOCYTES # (AUTO) 0.7 (1.0-3.2); LYMPHOCYTES % 17.1 % (18.0-39.1); MEAN CORPUSCULAR HEMOGLOBIN 30.1 pg (28-32); MEAN CORPUSCULAR HGB CONC 31.9 g/dL (31-35); MEAN CORPUSCULAR VOLUME 94.3 fL (81-99); MONOCYTES # (AUTO) 0.6 (0.2-0.8); MONOCYTES % 13.3 % (4.4-11.3); NEUTROPHILS # (AUTO) 2.7 (2.1-6.9); PLATELET COUNT 144 x10e3/uL (140-360); RED BLOOD COUNT 2.99 x10e6/uL (3.6-5.1); RED CELL DISTRIBUTION WIDTH 13.7 % (11.7-14.4)
[2019-06-20 05:47] LABS: ANION GAP 14.8 mmol/L (8-16); CALCIUM 8.2 mg/dL (8.4-10.2); CREATININE, SERUM 4.59 mg/dL (0.57-1.11); POTASSIUM 3.8 mmol/L (3.5-5.1)
--- NOTE | 2019-06-20 06:54 | NUR ---
bedside shift report given to Tahmina, patient awake alert, participated in shift report, patient c/o decrease comfort level r/t bed, air pump on bed to increase comfort level, Q2H patient repositioned overnight, denies increased comfort level , call light within reach, remains NPO for procedure, consent in chart
--- NOTE | 2019-06-20 07:10 | NUR ---
PATIENT IS AWAKE, ALERT, AND IN STABLE CONDITION WITH NO S/S OF RESPIRATORY DISTRESS. NO PAIN VOICED. PATIENT C/O DISCOMFORT FROM THE BED- PATIENT REPOSITION. PATIENT IS NPO FOR PROCEDURES TODAY. DIAPER APPLIED. CALL LIGHT IS WITHIN REACH OF PATIENT, PATIENT INSTRUCTED TO CALL FOR ASSISTANCE NEEDED.
[2019-06-20] MEDS: INSULIN REGULAR, HUMAN 100 UNIT/1 ML 3ML VIAL SQ SCH ×4 (07:30→21:00)
[2019-06-20] MEDS ORDERED: MIDAZOLAM HCL 2 MG/2 ML VIAL ONE (10:34)
[2019-06-20] MEDS ORDERED: FENTANYL CITRATE/PF 100MCG/2 ML INJ ONE (10:34)
[2019-06-20] MEDS ORDERED: HEPARIN SOD (PORCINE) 1000 UNIT/ML SDV ONE (10:34)
--- NOTE | 2019-06-20 10:48 | NUR ---
PATIENT OFF THE UNIT PER BED- PATIENT IN STABLE CONDITION WITH NO S/S OF RESPIRATORY DISTRESS. NO PAIN VOICED. IV'S TO BILATERAL AC'S ARE SALINE LOCKED. DIAPER APPLIED.
[2019-06-20] MEDS ORDERED: LIDOCAINE HCL 1% LOCAL INJ 20 ML VIAL ONE (11:35)
[2019-06-20] MEDS ORDERED: SODIUM CHLORIDE 0.9% 250ML 250 ML ONE (11:35)
[2019-06-20] MEDS ORDERED: CEFAZOLIN SOD 1 GM/NS 50ML 50 ML IV ONE (12:25)
--- NOTE | 2019-06-20 16:23 | NUR ---
Clinical updates (tunneled cath placement report, hep panel, CBC, CMP, CXR, med list, and nephrology progress notes) faxed to [facility] Intake at [phone].
--- NOTE | 2019-06-20 19:00 | NUR ---
PATIENT RESTING IN BED- IN STABLE CONDITION WITH NO S/S OF RESPIRATORY DISTRESS. NO PAIN VOICED. PATIENT WILL BE NPO AFTER MIDNIGHT FOR KIDNEY BIOPSY TOMORROW. DIAPER APPLIED. NEW TUNNELLED DIALYSIS PLACED TODAY TO RIGHT UPPER CHEST. CALL LIGHT IS WITHIN REACH OF PATIENT- PATIENT INSTRUCTED TO CALL FOR ASSISTANCE NEEDED. BEDSIDE REPORT GIVEN TO ONCOMING NURSE.
[2019-06-20] MEDS: DONEPEZIL HCL PO SCH (21:15)
--- NOTE | 2019-06-20 23:10 | NUR ---
CHG bath given to patient per protocol
[2019-06-21] VITALS (11 sets, daily range): BP systolic 138–152; BP diastolic 64–75
[2019-06-21] MEDS: PANTOPRAZOLE SOD 40 MG TABEC PO SCH ×2 (04:51→17:31)
[2019-06-21] MEDS: LEVOTHYROXINE SODIUM 25 MCG TABLET PO SCH (04:51)
[2019-06-21 05:28] LABS: BASOPHILS % 0.5 % (0.0-1.0); EOSINOPHILS # (AUTO) 0.2 (0.0-0.4); EOSINOPHILS % 3.9 % (0.0-6.0); HEMATOCRIT 27.4 % (34.2-44.1); LYMPHOCYTES # (AUTO) 0.8 (1.0-3.2); LYMPHOCYTES % 17.5 % (18.0-39.1); MEAN CORPUSCULAR HEMOGLOBIN 30.6 pg (28-32); MEAN CORPUSCULAR HGB CONC 32.8 g/dL (31-35); MEAN CORPUSCULAR VOLUME 93.2 fL (81-99); MONOCYTES # (AUTO) 0.6 (0.2-0.8); MONOCYTES % 12.9 % (4.4-11.3); NEUTROPHILS # (AUTO) 2.8 (2.1-6.9); NEUTROPHILS % 64.3 % (38.7-80.0); PLATELET COUNT 160 x10e3/uL (140-360); RED BLOOD COUNT 2.94 x10e6/uL (3.6-5.1); RED CELL DISTRIBUTION WIDTH 13.5 % (11.7-14.4)
[2019-06-21 05:36] LABS: ANION GAP 14.8 mmol/L (8-16); CALCIUM 8.4 mg/dL (8.4-10.2); CREATININE, SERUM 5.85 mg/dL (0.57-1.11); POTASSIUM 3.8 mmol/L (3.5-5.1)
[2019-06-21] MEDS: INSULIN REGULAR, HUMAN 100 UNIT/1 ML 3ML VIAL SQ SCH ×4 (07:30→20:21)
--- NOTE | 2019-06-21 14:17 | NUR ---
Spoke with Cleopatra at [facility] Intake [phone]. States they have everything they need and should get a chair soon.
--- NOTE | 2019-06-21 17:36 | NUR ---
Patient requested medication for diarrhea, called Dr. Larios's answering called, they stated they would page the physician.
--- NOTE | 2019-06-21 19:15 | NUR ---
PATIENT RECEIVED. PATIENT IS RESTING IN BED, [id number]. RES EVEN AND UNLABORED. NO ACUTE DISTRESS NOTED. TELE IN PLACE. CALL LIGHT WITHIN REACH. INSTRUCT TO CALL FOR ASSISTANCE. BED ALARM IS ON FOR FALL RISK. BED LOW/LOCKED. CONTINUE TO MONITOR CLOSELY
[2019-06-21] MEDS: DONEPEZIL HCL PO SCH (21:00)
[2019-06-21] MEDS: EPOETIN ALFA 10000 UNIT/ML VIAL SC SCH (21:01)
[2019-06-22] VITALS (8 sets, daily range): BP systolic 133–147; BP diastolic 57–67
--- NOTE | 2019-06-22 05:30 | NUR ---
OBTAINED CONSENT FORM FOR KIDNEY BIOPSY
[2019-06-22] MEDS: PANTOPRAZOLE SOD 40 MG TABEC PO SCH ×2 (05:49→17:15)
[2019-06-22] MEDS: LEVOTHYROXINE SODIUM 25 MCG TABLET PO SCH (05:50)
[2019-06-22] MEDS: INSULIN REGULAR, HUMAN 100 UNIT/1 ML 3ML VIAL SQ SCH ×4 (07:30→20:14)
[2019-06-22] MEDS ORDERED: FENTANYL CITRATE/PF 100MCG/2 ML INJ ONE (08:38)
[2019-06-22] MEDS ORDERED: MIDAZOLAM HCL 2 MG/2 ML VIAL ONE (08:38)
--- NOTE | 2019-06-22 14:29 | NUR ---
SPOKE WITH OANH AT [facility] DIALYSIS SHE IS REQUESTING A HEP B SURFACE ANTIBODY LAB ENTERED SHE WILL CALL DIALYSIS CENTER TO SEE IF THEY WILL ACCEPT PT WITHOUT IT AND WILL LET ME KNOW SPOKE WITH LAB; THIS IS A SEND OUT AND TAKES 2-3 DAYS TO COME BACK
[2019-06-22] MEDS: DONEPEZIL HCL PO SCH (20:38)
[2019-06-23] VITALS (7 sets, daily range): BP systolic 120–157; BP diastolic 60–86
[2019-06-23] MEDS: PANTOPRAZOLE SOD 40 MG TABEC PO SCH ×2 (05:31→17:19)
[2019-06-23] MEDS: LEVOTHYROXINE SODIUM 25 MCG TABLET PO SCH (05:31)
[2019-06-23] MEDS: INSULIN REGULAR, HUMAN 100 UNIT/1 ML 3ML VIAL SQ SCH ×4 (07:30→20:53)
[2019-06-23 09:35] LABS: BASOPHILS % 0.5 % (0.0-1.0); EOSINOPHILS # (AUTO) 0.1 (0.0-0.4); EOSINOPHILS % 2.8 % (0.0-6.0); HEMATOCRIT 27.6 % (34.2-44.1); HEMOGLOBIN 8.7 g/dL (12.0-16.0); LYMPHOCYTES # (AUTO) 0.7 (1.0-3.2); LYMPHOCYTES % 15.7 % (18.0-39.1); MEAN CORPUSCULAR HEMOGLOBIN 29.7 pg (28-32); MEAN CORPUSCULAR HGB CONC 31.5 g/dL (31-35); MEAN CORPUSCULAR VOLUME 94.2 fL (81-99); MONOCYTES # (AUTO) 0.5 (0.2-0.8); MONOCYTES % 11.1 % (4.4-11.3); NEUTROPHILS % 68.7 % (38.7-80.0); PLATELET COUNT 165 x10e3/uL (140-360); RED BLOOD COUNT 2.93 x10e6/uL (3.6-5.1); RED CELL DISTRIBUTION WIDTH 13.4 % (11.7-14.4)
[2019-06-23 09:52] LABS: ALBUMIN 2.6 g/dL (3.5-5.0); ALBUMIN/GLOBULIN RATIO 0.9 (0.8-2.0); ANION GAP 15.4 mmol/L (8-16); CALCIUM 8.2 mg/dL (8.4-10.2); CREATININE, SERUM 4.16 mg/dL (0.57-1.11); POTASSIUM 3.4 mmol/L (3.5-5.1)
--- NOTE | 2019-06-23 16:35 | NUR ---
Nutrition Screen Note RD Recommendation for Physician: -Continue renal diabetic diet -Encourage PO intake Plan of Care: RD following, monitoring for tolerance and adequacy Nutrition reason for involvement: Length of stay Primary Diagnose(s): hypoglycemia, acute renal failure PMH: HTN, diabetes, hypothyroid, recurrent GI bleed, dyslipidemia Ht: 61 in Wt:266 lb BMI: 50.3 kg/m2 IBW:[address] Assessment: (06/23/2018) Chart reviewed. Labs and meds reviewed. Pt is a 69 year old female admitted with hypoglycemia and acute renal failure. Pt reports eating <50% of her meals during admission (1 week) and for 1 week prior to admission. Pt was unsure of any recent weight changes or her usual weight. No N/V or chewing/swallowing issues. Offered pt a nutrition supplement due to decreased intake, but pt was not interested. Will continue to monitor. Current Diet: renal diabetic diet Malnutrition Evaluation (06/23/2019) The patient does not meet criteria for a specified degree of malnutrition at this time. Will re-evaluate at follow-up as appropriate. Energy intake: <50% of estimated energy requirements for >5 days Weight loss: Unknown Fat loss: no loss identified Muscle loss: no loss identified Supporting Evidence: Fluid accumulation: no accumulation identified per MD note Functional Status: unable to evaluate Diet Education Needs Assessment: Pt was not interested in diet education materials at time of visit Nutrition Care Level: high Signed: Riana Mendez, RD, LD
--- NOTE | 2019-06-23 17:48 | Consultation ---
DATE OF CONSULTATION: 06/21/2019 HISTORY OF PRESENT ILLNESS: Deborah Freitas is a 69-year-old white female, referred to me for possible multiple myeloma with positive kappa/lambda ratio high at 2.29. The patient had presented with renal failure. SOCIAL HISTORY: Noncontributory. FAMILY HISTORY: Noncontributory. ALLERGIES: NONE. MEDICATIONS: At this time: 1. Sodium chloride. 2. Insulin. 3. Dextrose. 4. Ondansetron. 5. Mannitol. 6. Protonix. 7. Heparin. 8. Erythropoietin. REVIEW OF SYSTEMS: HEENT: Normal. CARDIAC: Normal. RESPIRATORY: Normal. GI: Normal. : Renal failure. At the present time, as per my personal communication with Dr. Cuenca the patient's creatinine was normal a few weeks back. PHYSICAL EXAMINATION: GENERAL: A morbidly obese female, anemic. NECK: No palpable adenopathy. HEART: Within normal limits. LUNGS: Coarse crepitations. ABDOMEN: Soft. RECTAL AND VAGINAL: Deferred. CENTRAL NERVOUS SYSTEM: Essentially normal. EXTREMITIES: Essentially normal. LABORATORY DATA: Lab showed a hemoglobin of 6.4 on 06/17/2019. The patient has been transfused to 9 g today. White count of 4350 and platelets 560,000. BUN 19, creatinine 5.85, sodium 136, potassium 3.8, chloride 99, and CO2 26. INR 1.11. Calcium 7.7, protein 6.0, and albumin 2.9. [place]/lambda ratio high at 2.29. IMPRESSION: 1. Anemia. 2. Hypertension. 3. Gastrointestinal bleed. 4. Hypoglycemia, on admission. 5. Cipro for urinary tract infection as outpatient. 6. History of hypothyroidism. 7. History of hyperlipidemia. 8. Hyponatremia of 129. 9. Renal failure with BUN 40 and creatinine 8.7 prior to dialysis. 10. Hypocalcemia of 7.7. 11. Hypoproteinemia of 6. 12. Hypoalbuminemia of 2.9. 13. [place]/lambda ratio high at 2.29. 14. Possible myeloma. 15. Pulmonary vascular congestion. PLAN, COMMENTS, AND SUGGESTIONS: Plan a bone marrow as outpatient in my office when discharged. The patient, however, has had a kidney biopsy yesterday. This will be assessed prior to any bone marrow. Thank you, I will confine myself to Hematology only. I will be more than happy to follow this patient as outpatient if the attending would call and make an appointment with my office. MD EARNEST Paul/AIXA /[id number] cc: MD Raghavendra Marr MD
--- NOTE | 2019-06-23 19:15 | NUR ---
Patient visited in room during nursing rounds. Patient alert and oriented x3. No distress or discomfort noted. S/P dialysis today. Call hurtado within reach. Will monitor closely.
[2019-06-23] MEDS: DONEPEZIL HCL PO SCH (21:00)
[2019-06-23] MEDS: EPOETIN ALFA 10000 UNIT/ML VIAL SC SCH (21:14)
[2019-06-24] VITALS (7 sets, daily range): BP systolic 117–141; BP diastolic 55–70
[2019-06-24] MEDS: LEVOTHYROXINE SODIUM 25 MCG TABLET PO SCH (06:13)
[2019-06-24] MEDS: PANTOPRAZOLE SOD 40 MG TABEC PO SCH ×2 (06:13→18:00)
--- NOTE | 2019-06-24 07:10 | NUR ---
RCD PT AT BED PT IS ALERT AND ORIENTED RESTING ON BED BED LOW AND LOCKED CALL LIGHT IN REACH
[2019-06-24] MEDS: INSULIN REGULAR, HUMAN 100 UNIT/1 ML 3ML VIAL SQ SCH ×4 (07:30→21:00)
[2019-06-24] MEDS ORDERED: CELECOXIB 100 MG CAP PO PRN (11:30)
[2019-06-24] MEDS ORDERED: ACETAMINOPHEN 325 MG TAB PO PRN (17:00)
--- NOTE | 2019-06-24 19:12 | Progress Note ---
DATE: Internal Medicine Progress Note SUBJECTIVE: She is doing well. PHYSICAL EXAMINATION: HEART: Showed regular rhythm. Normal S1, S2 sound. LUNGS: Clear bilaterally. ABDOMEN: Soft. EXTREMITIES: Show no evidence of cyanosis. VITAL SIGNS: Blood pressure 140/55, temperature 97.5, heart rate 66 per minute, respiratory rate 20 per minute, oxygen saturation 97%. LABORATORY DATA: On the BMP; sodium 136, potassium 3.4, chloride 97, CO2 27, BUN 16, creatinine 4.16, glucose 80. On the CBC; white count 4.32, hemoglobin 8.7, hematocrit 37.6, platelet count a 165,000. PT is 14.8, INR 1.11, PTT 32.9. AST 16, ALT 10, total bilirubin 0.3, alkaline phosphatase 44. IMPRESSION: 1. Acute renal failure, on dialysis. We are waiting for the renal biopsy report. 2. Anemia of chronic disease. 3. Obesity. 4. Hypothyroidism. 5. Diabetes with nephropathy. PLAN OF TREATMENT: 1. Continue dialysis. 2. Continue monitoring blood sugar before meals and at bedtime. 3. Continue Protonix 40 mg twice a day. 4. Celebrex 100 mg twice a day. 5. Epogen 10,000 units Wednesday, Wednesday, and Wednesday. 6. Levothyroxine 25 mcg daily. 7. Lactulose 20 g q.8 hours as needed for constipation. 8. Zofran 4 mg q.4 hours as needed. 9. I will discontinue the Celebrex due to the renal insufficiency. 10. Teaching Dietitian seen the patient also. MD RUIZ Galeano/MODL /[id number]
--- NOTE | 2019-06-24 19:14 | NUR ---
PT RESTING ON BED BED SIDE REPORT GIVEN TO ONCOMING NURSE
--- NOTE | 2019-06-24 19:17 | NUR ---
SBAR report received at bedside from Moriah BLANCAS, patient awake alert, oriented, no distress noted, patient report no pain or discomfort, bed in lowest position, call light and personal belongings within reach, educated patient on hourly rounding with 4P's, acknowledge with teachback, board updated with POC
[2019-06-24 20:29] LABS: ANION GAP 17.6 mmol/L (8-16); CREATININE, SERUM 3.73 mg/dL (0.57-1.11); POTASSIUM 3.6 mmol/L (3.5-5.1)
[2019-06-24] MEDS: DONEPEZIL HCL PO SCH (21:25)
[2019-06-25] VITALS (10 sets, daily range): BP systolic 117–150; BP diastolic 49–83
[2019-06-25] MEDS: PANTOPRAZOLE SOD 40 MG TABEC PO SCH ×2 (06:00→17:25)
[2019-06-25] MEDS: LEVOTHYROXINE SODIUM 25 MCG TABLET PO SCH (07:06)
--- NOTE | 2019-06-25 07:12 | NUR ---
RCD PT AT BED PT IS ALERT AND ORIENTED RESTING ON BED BED LOW AND LOCKED CALL LIGHT IN REACH
[2019-06-25] MEDS: INSULIN REGULAR, HUMAN 100 UNIT/1 ML 3ML VIAL SQ SCH ×4 (07:30→21:00)
[2019-06-25] MEDS ORDERED: LINEZOLID 600 MG/D5W 300ML 300 ML IV SCH (09:45)
[2019-06-25] MEDS ORDERED: LOPERAMIDE HCL 2 MG CAP PO PRN (14:00)
--- NOTE | 2019-06-25 15:51 | Progress Note ---
DATE: Internal Medicine Progress Note SUBJECTIVE: The patient is complaining of diarrhea. PHYSICAL EXAMINATION: HEART: Showed regular rhythm. Normal S1, S2 sound. LUNGS: Clear bilaterally. ABDOMEN: Soft. EXTREMITIES: Show no evidence of edema. VITAL SIGNS: Blood pressure 127/49, temperature 97.7, heart rate 62 per minute, respiratory rate 18 per minute, oxygen saturation 98%. LABORATORY DATA: On the BMP; sodium 139, potassium 3.6, chloride 99, CO2 26, BUN 16, creatinine 3.73, glucose 83. On the CBC; white count 4.32, hemoglobin 8.7, hematocrit 27.6, platelet count 165,000, PT 14.8, INR 1.11, PTT 32.9. AST 16, ALT 10, total bilirubin 0.3, alkaline phosphatase 44. FINAL IMPRESSION: 1. Acute renal failure. 2. Chronic anemia. 3. Obesity. 4. Hypothyroidism. 5. Diabetes mellitus type 2 with diabetic nephropathy. 6. Acute diarrhea. We are waiting for the biopsy report to delineate the treatment. Continue dialysis. Continue Protonix 40 mg daily, Imodium as needed for diarrhea, Tylenol 325 mg q.4 hours as needed for pain or fever. She is also taking Epogen 10,000 units Wednesday, Wednesday, Wednesday for anemia of chronic disease. Continue levothyroxine 25 mcg daily, Zofran 4 mg IV q.4 hours as needed, lactulose 20 g q.8 hours. MD RUIZ Galeano/AIXA /[id number]
--- NOTE | 2019-06-25 18:40 | NUR ---
PT RESTING ON BED BED SIDE REPORT GIVEN TO ONCOMING NURSE
--- NOTE | 2019-06-25 20:16 | NUR ---
RECEIVED PT IN BED ALERT AND ORIENTED X3 RESPIRATIONS ARE EVEN AND UNLABORED RESTING BED LOW AND LOCKED CALL LIGHT WITH IN REACH.CONTINUE TO MONITOR
[2019-06-25] MEDS: DONEPEZIL HCL PO SCH (21:55)
[2019-06-26] VITALS (8 sets, daily range): BP systolic 126–145; BP diastolic 58–86
--- NOTE | 2019-06-26 05:50 | NUR ---
PT RESTED DURING THE NIGHT .DENIES PAIN .CALL LIGHT WITH IN REACH .CONTINUE TO MONITOR
[2019-06-26 05:52] LABS: ANION GAP 19.5 mmol/L (8-16); CALCIUM 8.7 mg/dL (8.4-10.2); CREATININE, SERUM 3.83 mg/dL (0.57-1.11); POTASSIUM 3.5 mmol/L (3.5-5.1)
[2019-06-26] MEDS: PANTOPRAZOLE SOD 40 MG TABEC PO SCH ×2 (06:00→18:10)
[2019-06-26] MEDS: LEVOTHYROXINE SODIUM 25 MCG TABLET PO SCH (06:00)
[2019-06-26] MEDS: INSULIN REGULAR, HUMAN 100 UNIT/1 ML 3ML VIAL SQ SCH ×4 (07:30→21:00)
--- NOTE | 2019-06-26 07:32 | NUR ---
BEDSIDE REPORT GIVEN TO THE ONCOMING NURSE
--- NOTE | 2019-06-26 09:02 | NUR ---
HEP B SURFACE ANTIBODY RESULTS FAXED TO OANH AT [facility] [phone] AWAIT CONFIRMATION LETTER
--- NOTE | 2019-06-26 13:58 | NUR ---
REC'D [place] [facility] [place] TO CHART, 2 COP[place] [facility] [place]DA SHAW START DATE 06/28/19 AT 2 PM CM SPOKE WITH PT'S SISTER VANESSA CARPIO WHO IS INQUIRING ABOUT DIALYSIS TRANSPORTATION EXPLAINED TO HER THAT SHE NEEDS TO SPEAK WITH TRAINING PROGRAM MANAGER AT THE DIALYSIS CENTER
--- NOTE | 2019-06-26 14:06 | NUR ---
PT TO DC HOME TODAY AFTER DIALYSIS NURSE SINDI TORREZ
--- NOTE | 2019-06-26 15:29 | NUR ---
spoke to Reginald at the dialysis call center and she said someone was coming out to do dialysis today
--- NOTE | 2019-06-26 19:20 | NUR ---
SPOKE TO JANIE AT DIALYSIS CALL CENTER TO REQUEST FOR DIALYSIS ORDER HAD BEEN PLACED SINCE AM. JANIE SAID SHE WOULD PAGED T DIALYSIS NURSE TO COME TO HOSPITAL
--- NOTE | 2019-06-26 19:50 | NUR ---
DIALYSIS NURSE HERE TO START HD FOR PATIENT
[2019-06-26] MEDS: DONEPEZIL HCL PO SCH (21:30)
[2019-06-26] MEDS ORDERED: SODIUM CHLORIDE 0.9% 1000ML 2,000 ML IV PRN (21:45)
[2019-06-26] MEDS ORDERED: SODIUM CHLORIDE 0.9% 250ML 500 ML IV PRN (21:45)
[2019-06-26] MEDS ORDERED: HEPARIN SOD (PORCINE) 1000 UNIT/ML SDV IV PRN (21:45)
--- NOTE | 2019-06-26 23:30 | NUR ---
DIALYSIS NURSE REPORTED THAT HE COULDN'T PULL ANY FLUID DURING DIALYSIS. VITAL STABLE AT THIS TIME. CONTINUE TO MONITOR CLOSELY
[2019-06-27] VITALS: BP 151/63
[2019-06-27 04:00] VITALS: BP 139/65
[2019-06-27] MEDS: PANTOPRAZOLE SOD 40 MG TABEC PO SCH (06:22)
[2019-06-27] MEDS: LEVOTHYROXINE SODIUM 25 MCG TABLET PO SCH (06:22)
[2019-06-27] MEDS: INSULIN REGULAR, HUMAN 100 UNIT/1 ML 3ML VIAL SQ SCH (07:30)
[2019-06-27 07:44] VITALS: BP 139/65
[2019-06-27 08:00] VITALS: BP 126/62
--- NOTE | 2019-06-27 10:30 | NUR ---
Discharge instructions were given to the patient, she verbalized understanding. She has an appointment at hemodialysis clinic 06/28/2019. Dr Rc Larios at the bedside discussing follow up appointments with the patient. IV removed from right AC with tip intact.
--- NOTE | 2019-06-27 12:32 | NUR ---
Patient left the floor via wheelchair. She is discharged home.
--- NOTE | 2019-06-28 14:25 | Diagnostic Imaging Report ---
Conversion of a nontunneled to tunneled dialysis catheter. History: Renal failure. Modality: Fluoroscopy. Sedation: Versed 2 mg and fentanyl 100 mcg was given intravenously for conscious sedation. Vital signs were monitored throughout the procedure by a nurse, and remained stable. Physician intra-service time was 2. Nurses Medical Assistants Phlebotomists: MD Roman. Heating And Cooling Systems Engineer: None. Approach: Right internal jugular vein Estimated blood loss: < 5 cc. Specimen: None. Fluoroscopy Time: 0.2 min. Dose (Ka,r): 3.03 mGy. Technique: Informed written consent was obtained. Discussion of risks, benefits, and alternatives were made with the patient. The patient expressed understanding and agreed to proceed. All elements maximal sterile barrier technique was utilized for this procedure, including utilization of sterile scrub solution for skin prep, a large sterile sheet to cover the areas of the patient that were not prepped, and hand hygiene, mask, head covering, and sterile gown for performing radiologist and scrub technologist. The skin was anesthetized with 2% lidocaine. A 0.35 inch diameter guidewire was inserted through the existing nontunneled dialysis catheter into the IVC. A subcutaneous tunnel was created in the right anterior chest wall by blunt dissection. A 14.5 Slovenian, 19 cm tip to cuff tunneled dialysis catheter was brought through the tunnel. The existing nontunneled hemodialysis catheter was then removed over the guidewire. A peel-away sheath was placed in the right IJ vein and the catheter was advanced through the sheath, with its distal tip terminating in the right atrium. The peel-away sheath was removed. The ports were flushed and aspirated easily following placement. The catheter was sutured to the skin to secure its placement. A resorbable pursestring suture was placed at the catheter exit site. The small jugular incision site was closed using Dermabond. Vital signs were monitored throughout the procedure by a nurse, and remained stable. The patient tolerated the procedure well and left the department in the same condition. Results: Spot radiograph of the chest demonstrates the new dialysis catheter to lie in the expected position with its tip overlying the superior right atrium. Impression: Successful, uncomplicated conversion of a nontunneled right internal jugular to a tunneled dialysis catheter. Signed by: Dr. Manuel Owens MD on 06/20/2019 12:58 PM
--- NOTE | 2019-06-28 14:26 | Diagnostic Imaging Report ---
PROCEDURE: Ultrasound-guided biopsy Procedural Personnel Attending physician(s): Amos Ling MD Fellow physician(s): None Resident physician(s): None Advanced practice provider(s): None Pre-procedure diagnosis: Acute kidney injury Post-procedure diagnosis: Same Indication: Organ dysfunction Previous biopsy of same target (QCDR): No Additional clinical history: None Complications: No immediate complications. IMPRESSION: Ultrasound-guided biopsy of left renal cortex. Plan: Specimen(s) sent for evaluation. PROCEDURE SUMMARY: - Percutaneous US-guided coaxial core needle biopsy - Additional procedure(s): None PROCEDURE DETAILS: Pre-procedure Reference imaging for biopsy target: None Consent: Informed consent for the procedure including risks, benefits and alternatives was obtained and time-out was performed prior to the procedure. Preparation: The site was prepared and draped using maximal sterile barrier technique including cutaneous antisepsis. Anesthesia/sedation Level of anesthesia/sedation: Moderate sedation (conscious sedation) Anesthesia/sedation administered by: Independent trained observer under attending supervision with continuous monitoring of the patient?s level of consciousness and physiologic status Total intra-service sedation time (minutes): 30 Imaging prior to biopsy The patient was positioned right lateral decubitus oblique. Initial ultrasound was performed. Biopsy target: - Maximal diameter (cm): N/A (nonfocal) - Location: Left renal cortex Other findings: None Biopsy Local anesthesia was administered. Under US guidance, the biopsy needle was advanced to the target and biopsy was performed. Coaxial needle: 17 gauge Core needle biopsy device: Syntertainmentno Core needle size: 18 gauge Number of core specimens: 4 Needle removal The biopsy needle was removed and a sterile dressing was applied. Tract embolization: Gelfoam slurry Imaging following biopsy Immediate post-biopsy ultrasound was performed. Post-biopsy imaging findings: No hematoma Additional Details Additional description of procedure: None Equipment details: None Specimens removed: Biopsy samples as detailed above Estimated blood loss (mL): Less than 10 Standardized report: [id number] Attestation Signer name: Amos Ling MD I attest that I was present for the entire procedure. I reviewed the stored images and agree with the report as written. Signed by: Amos Ling MD on 06/22/2019 10:48 AM
[2019-08-03] MEDS ORDERED: FENOFIBRATE145 MG (15:02)
[2019-08-03] MEDS ORDERED: GOLYTELY SOLU4000 ML PO (15:02)
[2019-08-03] MEDS ORDERED: MIRTAZAPINE15 MG PO (15:02)
[2019-08-03] MEDS ORDERED: MEGESTROL400 MG/10 PO (15:02)
[2019-08-03] MEDS ORDERED: DICYCLOMINE HCL10 MG (15:02)
[2019-08-03] MEDS ORDERED: DULCOLAX5 MG (15:02)
[2019-08-03] MEDS ORDERED: ZOFRAN8 MG (15:06)
[2019-08-03] MEDS ORDERED: NOVOLIN R100 UNIT/1 (15:06)
== END 2019-06-27 12:30 | disposition home or self-care (01) | DRG 673 ==
LOC: ER 01:57 → ERHOLD 04:29 → ICU 15:15 → MED/SURG2 06-18 17:49 → UNDODISIN 06-19 11:31
PROC: 5A1D70Z Performance of Urinary Filtration, Intermittent, Less than 6 Hours Per Day (ICD-10-PCS; principal; 2019-06-16)
PROC: 02HV33Z Insertion of Infusion Device into Superior Vena Cava, Percutaneous Approach (ICD-10-PCS; 2019-06-16)
PROC: B548ZZA Ultrasonography of Superior Vena Cava, Guidance (ICD-10-PCS; 2019-06-16)
PROC: 5A1D70Z Performance of Urinary Filtration, Intermittent, Less than 6 Hours Per Day (ICD-10-PCS; 2019-06-17)
PROC: 5A1D70Z Performance of Urinary Filtration, Intermittent, Less than 6 Hours Per Day (ICD-10-PCS; 2019-06-19)
PROC: 0JH63XZ Insertion of Tunneled Vascular Access Device into Chest Subcutaneous Tissue and Fascia, Percutaneous Approach (ICD-10-PCS; 2019-06-20)
PROC: 5A1D70Z Performance of Urinary Filtration, Intermittent, Less than 6 Hours Per Day (ICD-10-PCS; 2019-06-21)
PROC: 0TB13ZX Excision of Left Kidney, Percutaneous Approach, Diagnostic (ICD-10-PCS; 2019-06-22)
DX: N17.0 Acute kidney failure with tubular necrosis (principal); I50.31 Acute diastolic (congestive) heart failure; N30.01 Acute cystitis with hematuria; E87.1 Hypo-osmolality and hyponatremia; K92.2 Gastrointestinal hemorrhage, unspecified; C90.00 Multiple myeloma not having achieved remission; Z68.41 Body mass index [BMI] 40.0-44.9, adult; I13.2 Hypertensive heart and chronic kidney disease with heart failure and with stage 5 chronic kidney disease, or end stage renal disease; E11.649 Type 2 diabetes mellitus with hypoglycemia without coma; E78.5 Hyperlipidemia, unspecified; R53.1 Weakness; N10 Acute pyelonephritis; E87.70 Fluid overload, unspecified; E03.9 Hypothyroidism, unspecified; E83.51 Hypocalcemia; E77.8 Other disorders of glycoprotein metabolism; E88.09 Other disorders of plasma-protein metabolism, not elsewhere classified; D63.8 Anemia in other chronic diseases classified elsewhere; E66.9 Obesity, unspecified; E11.21 Type 2 diabetes mellitus with diabetic nephropathy; I50.9 Heart failure, unspecified; F03.90 Unspecified dementia, unspecified severity, without behavioral disturbance, psychotic disturbance, mood disturbance, and anxiety; N18.9 Chronic kidney disease, unspecified; N18.6 End stage renal disease
CPT/HCPCS: 36415; 36556; 36558; 50200; 51700; 71045; 74470; 76770; 76937; 76942; 77003; 80048; 80053; 81001; 81015; 82550; 82553; 82570; 82728; 82948; 83540; 83605; 83880; 84156; 84165; 84443; 84466; 84484; 85025; 85610; 85730; 86021; 86039; 86160; 86431; 86704; 86705; 86706; 86803; 86850; 86900; 86920; 87040; 87086; 87340; 90962; 93005; 93306; 99152; 99153; 99285; C1769; C1892; J0690; J0696; J1644; J2001; J2150; J2250; J2405; J3010; J7030; J7042; J7050; J7070; P9016; Q4081

== ENCOUNTER → 2019-08-07 | Day surgery (SDC) | payer MEDICARE ==
[~2019-08-07] MED LIST changes: +DICYCLOMINE HCL10 MG; +DULCOLAX5 MG; +FENOFIBRATE145 MG; +GOLYTELY SOLU4000 ML PO; +MEGESTROL400 MG/10 PO; +METOCLOPRAMIDE HCL 10 MG/2ML VIAL ONE; +MIRTAZAPINE15 MG PO; +NOVOLIN R100 UNIT/1; +PROPOFOL IV EMULSION 10 MG/ML 50 ML VIAL ONE; +ZOFRAN8 MG
[2019-08-07 16:34] VITALS: BP 120/85
--- NOTE | 2019-08-07 19:17 | Operative Report ---
DATE OF PROCEDURE: 08/07/2019 SURGEON: David Larios MD PROCEDURES: EGD with pyloric channel stricture dilatation and biopsies. INDICATIONS FOR EGD: Recurrent nausea and vomiting. MEDICATIONS: The patient was done under MAC, please see anesthesiologist's note. PROCEDURE IN DETAIL: With the patient in the left lateral decubitus position, a flexible fiberoptic Olympus gastroscope was introduced into the esophagus under direct visualization without any difficulty. There was some patchy erythema noted in distal esophagus. The scope was then advanced with ease into the stomach traversing a small sliding hiatal hernia. Mucosa overlying the antrum and the body revealed some patchy erythema and odxc-ed-xdiorsgz edema, and biopsies were obtained and sent to stain for H. pylori. Prepyloric area was nodular and friable and that was biopsied. Pyloric channel was strictured and that was dilated to size 20 mm per TTS balloon dilators. The scope was then advanced with ease to the second portion of the duodenum. Biopsies were obtained from the proximal second portion and the duodenal bulb to rule out sprue. The scope was then withdrawn back into the stomach and retroflexed, mucosa overlying the fundus and the cardia appeared to be within normal limits. The scope was then straightened out, it was subsequently withdrawn, and the patient tolerated the procedure well. IMPRESSION: 1. Distal esophagitis. 2. Small sliding hiatal hernia. 3. Gastritis, biopsied, biopsies sent to stain for Helicobacter pylori. 4. Prepyloric area, nodular, friable, biopsied. 5. 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 6. Rule out sprue. PLAN: Follow up histology. Continue Protonix 40 mg 1 p.o. before meals b.i.d. Add Carafate 1 g p.o. before meals t.i.d. and at bedtime and Reglan 10 mg 1 p.o. before meals t.i.d. and at bedtime. The patient will need a repeat EGD in 2 to 3 weeks to re-evaluate prepyloric area. David Larios MD [facility]/MODL /[id number] cc: Yasmany Larios MD
== END | disposition home or self-care (01) ==
LOC: OR 12:17
PROVIDERS: ATTEND Internal Medicine Gastroenterology
DX: K29.70 Gastritis, unspecified, without bleeding (principal); K31.1 Adult hypertrophic pyloric stenosis; K44.9 Diaphragmatic hernia without obstruction or gangrene; K31.89 Other diseases of stomach and duodenum; K21.9 Gastro-esophageal reflux disease without esophagitis; R63.0 Anorexia; K58.9 Irritable bowel syndrome, unspecified; R19.7 Diarrhea, unspecified; D64.9 Anemia, unspecified; E78.5 Hyperlipidemia, unspecified; E03.9 Hypothyroidism, unspecified; E11.22 Type 2 diabetes mellitus with diabetic chronic kidney disease; I12.9 Hypertensive chronic kidney disease with stage 1 through stage 4 chronic kidney disease, or unspecified chronic kidney disease; N18.9 Chronic kidney disease, unspecified; M06.9 Rheumatoid arthritis, unspecified; F03.90 Unspecified dementia, unspecified severity, without behavioral disturbance, psychotic disturbance, mood disturbance, and anxiety; Z79.4 Long term (current) use of insulin
CPT/HCPCS: 36415; 43239; 43245; 82948; 93005; J2704; J2765; 43233

== ENCOUNTER → 2019-08-16 | Day surgery (SDC) | payer MEDICARE ==
[~2019-08-16] MED LIST changes: +ACETAMINOPHEN 1000 MG/100 ML IV ONE; +FENTANYL CITRATE/PF 100MCG/2 ML INJ ONE; +ONDANSETRON HCL INJ 2MG/ML 2ML 2 MG/ML VIAL ONE
[2019-08-16 14:15] VITALS: BP 147/87
--- NOTE | 2019-08-16 19:13 | Operative Report ---
DATE OF PROCEDURE: 08/16/2019 SURGEON: David Larios MD PROCEDURE: EGD with PEG tube placement. INDICATIONS FOR PROCEDURE: Anorexia, the patient not eating, weight loss. MEDICATIONS: The patient was done under MAC, please see anesthesiologist's note. PROCEDURE IN DETAIL: With the patient in the supine position, the flexible fiberoptic Olympus gastroscope was introduced into the esophagus under direct visualization without any difficulty. There was some patchy erythema noted in distal esophagus. The scope was then advanced with ease into the stomach traversing a small sliding hiatal hernia. Mucosa overlying the antrum and the body revealed some patchy erythema and xfee-hb-xibrndkz edema. The pylorus was strictured and this was dilated again to size 20 mm per TTS balloon dilators. The scope was then withdrawn back into the stomach and retroflexed, and the area around the fundus and the cardia appeared to be within normal limits. The scope was then straightened out and after delineating with external digital palpation and transabdominal illumination, a safe entry point PEG tube insertion was carried out in the usual fashion. The patient tolerated the procedure well. The scope was subsequently withdrawn after documenting a good positioning of the intragastric bumper. IMPRESSION: 1. Mild distal esophagitis. 2. Small sliding hiatal hernia. 3. Gastritis. 4. 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 5. PEG tube insertion carried out in the usual fashion. The patient tolerated the procedure well. G-tube to drain to gravity x24 hours then can use. David Larios MD [facility] [place] /[id number] cc: Yasmany Larios MD
== END | disposition home or self-care (01) ==
LOC: OR 10:49
PROVIDERS: ATTEND Internal Medicine Gastroenterology
DX: R63.0 Anorexia (principal); E11.9 Type 2 diabetes mellitus without complications; I10 Essential (primary) hypertension; I48.91 Unspecified atrial fibrillation; E03.9 Hypothyroidism, unspecified; D64.9 Anemia, unspecified; Z90.49 Acquired absence of other specified parts of digestive tract; R19.7 Diarrhea, unspecified; R11.10 Vomiting, unspecified; K25.4 Chronic or unspecified gastric ulcer with hemorrhage; K20.9 Esophagitis, unspecified; K29.70 Gastritis, unspecified, without bleeding; K44.9 Diaphragmatic hernia without obstruction or gangrene; K31.1 Adult hypertrophic pyloric stenosis; Z79.4 Long term (current) use of insulin
CPT/HCPCS: 36415; 43246; 82948; C1726; J0131; J2405; J2704; J2765; J3010; 43450

== ENCOUNTER 2019-10-05 13:02 | Inpatient (IN) | payer MEDICARE, OTHER ==
[~2019-10-05] VITALS: Ht 165.1 cm; Wt 108.0 kg
[~2019-10-05 13:02] MED LIST changes: -ACETAMINOPHEN 1000 MG/100 ML IV ONE; -FENTANYL CITRATE/PF 100MCG/2 ML INJ ONE; -METOCLOPRAMIDE HCL 10 MG/2ML VIAL ONE; -ONDANSETRON HCL INJ 2MG/ML 2ML 2 MG/ML VIAL ONE; -PROPOFOL IV EMULSION 10 MG/ML 50 ML VIAL ONE
[2019-10-05 14:25] LABS: BASOPHILS % 0.3 % (0.0-1.0); EOSINOPHILS # (AUTO) 0.2 (0.0-0.4); EOSINOPHILS % 3.1 % (0.0-6.0); HEMATOCRIT 32.5 % (34.2-44.1); HEMOGLOBIN 10.1 g/dL (12.0-16.0); LYMPHOCYTES # (AUTO) 0.8 (1.0-3.2); LYMPHOCYTES % 11.9 % (18.0-39.1); MEAN CORPUSCULAR HEMOGLOBIN 32.1 pg (28-32); MEAN CORPUSCULAR HGB CONC 31.1 g/dL (31-35); MEAN CORPUSCULAR VOLUME 103.2 fL (81-99); MONOCYTES # (AUTO) 0.6 (0.2-0.8); MONOCYTES % 9.1 % (4.4-11.3); NEUTROPHILS # (AUTO) 5.3 (2.1-6.9); NEUTROPHILS % 75.3 % (38.7-80.0); PLATELET COUNT 170 x10e3/uL (140-360); RED BLOOD COUNT 3.15 x10e6/uL (3.6-5.1); RED CELL DISTRIBUTION WIDTH 17.3 % (11.7-14.4)
[2019-10-05 14:44] LABS: ALBUMIN 3.5 g/dL (3.5-5.0); ALBUMIN/GLOBULIN RATIO 0.8 (0.8-2.0); ANION GAP 15.9 mmol/L (8-16); CALCIUM 10.3 mg/dL (8.4-10.2); CREATININE, SERUM 0.94 mg/dL (0.57-1.11); POTASSIUM 3.9 mmol/L (3.5-5.1)
--- NOTE | 2019-10-05 14:47 | NUR ---
unable to verify home medications at this time.
[2019-10-05 14:52] LABS: CREATINE KINASE MB 2.2 ng/mL (0-5.0)
[2019-10-05 14:59] LABS: CLARITY,URINE SL CLOUDY (CLEAR); COLOR,URINE AMBER (YELLOW); LEUKOCYTE ESTERASE ,URINE NEGATIVE (NEGATIVE)
[2019-10-05 15:00] LABS: BILIRUBIN,URINE 2+ (NEGATIVE); KETONES,URINE TRACE (NEGATIVE); NITRITE,URINE NEGATIVE (NEGATIVE); PROTEIN,URINE DIPSTICK >=300 (NEGATIVE)
--- NOTE | 2019-10-05 15:00 | NUR ---
Incontinence care provided for urine and stool.
[2019-10-05 15:26] LABS: BACTERIA,URINE MANY /HPF; EPITHELIAL CELLS,URINE RARE /LPF
[2019-10-05] MEDS ORDERED: CEFTRIAXONE SOD 1 GM/NS 50 ML 50 ML IV ONE (16:00)
--- NOTE | 2019-10-05 16:07 | Diagnostic Imaging Report ---
EXAMINATION: CHEST SINGLE (PORTABLE) INDICATION: Atrial fibrillation COMPARISON: None FINDINGS: LINES/TUBES: EKG leads overlie the chest. LUNGS:The lungs are moderately inflated. No focal consolidation or pulmonary edema. PLEURA:No pleural effusion or pneumothorax. MEDIASTINUM:The cardiomediastinal silhouette appears normal in size and shape. BONES/SOFT TISSUES:No acute osseous injury. ABDOMEN:No free air under the diaphragm. IMPRESSION: No focal pneumonia or pulmonary edema. Signed by: Amos Ling MD on 10/05/2019 4:04 PM
--- NOTE | 2019-10-05 16:30 | NUR ---
Dr. Bland at bedside
--- NOTE | 2019-10-05 17:30 | NUR ---
report attempted was told to call back in 10 minutes.
--- NOTE | 2019-10-05 19:52 | NUR ---
Received change of shift report from AM nurse. Walking rounds completed.
--- NOTE | 2019-10-05 20:16 | Consultation ---
DATE OF CONSULTATION: Cardiac Consultation HISTORY: A 69-year-old lady, very poorly historian, information was taken from over reviewing all her old records, data, etc., because the patient currently is confused. Apparently, she was in her usual status of health until late May 2019, she had major GI bleed. Subsequently after she went home after her GI bleed, she came back with acute tubular necrosis. She had hemodialysis catheter. She started on hemodialysis. Following that in June 2019, the patient came to this institution with syncope, severe hypotension, and her blood pressure dropped dramatically after her dialysis. She had another episode of GI bleed. During that stay, she had 1 episode of paroxysmal atrial fibrillation. Regardless, she was stabilized. Her hemodialysis catheter was removed because of improvement of renal function. She went for rehab in [facility] and subsequently dismissed home. She came today to this institution, confused, altered, and hypotensive. Her telemetry showed a short run of atrial fibrillation. Her EKG showed sinus tachycardia with frequent PACs and PVCs. Because of her presentation as well as her troponin being elevated at 0.65, cardiac consultation is obtained. I visited with the patient in the emergency room. She is unfortunately cannot give much of information. As I can gather by records, her activities are limited. She is dependent on her care by her family. Regarding her cardiac symptoms after reviewing, she has does not have any angina. Easy fatigability, shortness of breath, but she is having very limited activity and health is deteriorating very rapidly. REVIEW OF SYSTEMS: GENERAL: Possible fever, chills, poor appetite, not eating well. HEENT: No hearing problem. No vision problem. PULMONARY: Easy fatigability, shortness of breath on exertion. CARDIAC: Easy fatigability, shortness of breath on exertion, tightness. GI: Nausea, but no vomiting. No hematemesis. No melena. : Incontinent. NEUROLOGIC: The patient is very weak. She is unable to move her extremities. She is "totally confused." HEENT: Very dry mucosa. HEMATOLOGY: No bruises noted. SOCIAL HISTORY: She is staying home with her sisters. She is nonsmoker and nonalcohol drinker. 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 CURRENT MEDICATIONS: She does not have list, but she was discharged home last time on lisinopril 10 mg daily, levothyroxine 25 mcg daily, Lipitor 20 mg daily, glipizide, and vitamin B12. ALLERGIES: NONE. FAMILY HISTORY: Father of cancer at age 70. Mother of heart problem at age 56. She lost one of her 2 brothers of questionable cause. She lost 2 sisters. She does have 1 healthy kid. PAST MEDICAL HISTORY: 1. Diabetes mellitus. 2. Hypertension. 3. Obesity. 4. Cholecystectomy. 5. Bilateral cataract surgery. 6. Repeated GI bleed since May 2019. 7. An episode of acute tubular necrosis, recovered in June 2019. 8. Weakness and debility. 9. Possible multiple myeloma. 10. The patient is dependent on her care on her family. PHYSICAL EXAMINATION: VITAL SIGNS: Height of 5 feet 5 inches, weight of 200 pounds. Blood pressure 90/60, heart rate of 110 and irregularly irregular is noted. HEENT: Pupils are reactive. Very dry mucosa. NECK: No elevation of jugular venous pulsation. CHEST: Decreased air entry with crackles. HEART: PMI in 5th left intercostal space. Normal first and second heart sounds with ejection systolic murmur. ABDOMEN: Obese, soft. No tenderness. EXTREMITIES: No peripheral edema. No signs of deep venous thrombosis. NEUROLOGIC: The patient looked quite debilitated. She is confused. She does have muscle wasting in her lower extremity. She is able to move her extremities. LABORATORY DATA: White blood cell count of 7000, hemoglobin 10.1, hematocrit 33%, and platelet count of 170,000. Sodium of 145, potassium 3.9, BUN of 16, creatinine of 0.9. Calcium is elevated at 10.3. Troponin 0.65. EKG showing sinus tachycardia with PACs and PVCs. IMPRESSION AND PLAN: 1. Confused status, possible urinary tract infection. 2. Hypotension. 3. Diabetes mellitus with end-organ damage. 4. Obesity. 5. Hypertension, currently hypotensive. 6. Confusion. 7. Possible multiple myeloma. 8. Repeated gastrointestinal bleed. 9. Paroxysmal atrial fibrillation. 10. Probability of coronary artery disease with elevated troponin; however, the patient is very ill at this time point. From a cardiac point of view, we would recommend IV fluids, antibiotics, cultures, observe the patient's clinical condition, serial cardiac enzymes. We will try to review her old records again looking if she had any prior workup for multiple myeloma. If not, we will recommend this to be done. We will check her progression and daily volume with you and further steps to be done as needed. Case discussed with ER team, with ER nursing staff. We will follow the patient's progression with you. MD EVIE Joiner/MODL /[id number]
[2019-10-05 20:39] VITALS: BP 110/66
[2019-10-05 21:00] VITALS: BP 110/66
[2019-10-05 21:24] VITALS: BP 110/66
[2019-10-06] VITALS (8 sets, daily range): BP systolic 108–133; BP diastolic 43–63
--- NOTE | 2019-10-06 | NUR ---
Patient admit completed. Patient denies pain at this time. Continue monitor for changes in patient condition.
--- NOTE | 2019-10-06 08:26 | NUR ---
THERON RODNEY [phone] [facility] NURSE CALLED TO ASSIST AND LET KNOW WAS ON SERVICE UP UNTIL ADMISSION, WILL BE ABLE TO TAKE PT BACK UPON DISCHARGE.
[2019-10-06] MEDS ORDERED: DEXTROSE 50% SYRINGE 50 ML IV PRN (11:00)
[2019-10-06] MEDS: INSULIN REGULAR, HUMAN 100 UNIT/1 ML 3ML VIAL SQ SCH ×4 (11:30→21:00)
[2019-10-06 11:42] LABS: BASOPHILS % 0.4 % (0.0-1.0); EOSINOPHILS # (AUTO) 0.1 (0.0-0.4); EOSINOPHILS % 2.3 % (0.0-6.0); HEMATOCRIT 29.1 % (34.2-44.1); HEMOGLOBIN 9.2 g/dL (12.0-16.0); LYMPHOCYTES # (AUTO) 1.1 (1.0-3.2); LYMPHOCYTES % 21.5 % (18.0-39.1); MEAN CORPUSCULAR HEMOGLOBIN 32.3 pg (28-32); MEAN CORPUSCULAR HGB CONC 31.6 g/dL (31-35); MEAN CORPUSCULAR VOLUME 102.1 fL (81-99); MONOCYTES # (AUTO) 0.5 (0.2-0.8); MONOCYTES % 9.8 % (4.4-11.3); NEUTROPHILS # (AUTO) 3.4 (2.1-6.9); NEUTROPHILS % 65.4 % (38.7-80.0); PLATELET COUNT 130 x10e3/uL (140-360); RED BLOOD COUNT 2.85 x10e6/uL (3.6-5.1); RED CELL DISTRIBUTION WIDTH 16.9 % (11.7-14.4)
--- NOTE | 2019-10-06 11:42 | Diagnostic Imaging Report ---
Examination: CT BRAIN WO CONTRAST History:Confusion; altered mental status. Comparison studies:Head CT dated 06/28/2019 Technique: Axial images were obtained from the skull base to the vertex. Coronal and sagittal images reconstructed from the axial data. Dose modulation, iterative reconstruction, and/or weight based adjustment of the mA/kV was utilized to reduce the radiation dose to as low as reasonably achievable. Intravenous contrast: None Findings: Scalp: No abnormalities. Bones: No fractures, blastic or lytic lesions. Brain sulci: Appropriate for age. Ventricles: Normal in size and configuration. No hydrocephalus. Extra-axial space: No abnormalities. Parenchyma: No masses, hemorrhage, or acute or chronic cortical based vascular insults.. Sellar/suprasellar region: No abnormalities. Craniocervical junction: Patent foramen magnum. No Chiari one malformation. Incidental findings: Evidence of prior cataract surgery. Atherosclerotic calcification of the cavernous and supraclinoid internal carotid arteries. Impression: No new or acute intracranial abnormalities when compared to prior head CT dated 06/28/2019. Signed by: Dr. Anuja Randall M.D. on 10/06/2019 11:39 AM
[2019-10-06 12:00] LABS: ALANINE AMINOTRANSFERASE 49 IU/L (0-55); ALBUMIN 3.1 g/dL (3.5-5.0); ALBUMIN/GLOBULIN RATIO 0.9 (0.8-2.0); ALKALINE PHOSPHATASE 26 IU/L (40-150); ANION GAP 11.5 mmol/L (8-16); BLOOD UREA NITROGEN 16 mg/dL (7-26); BUN/CREATININE RATIO 20 (6-25); CALCIUM 9.7 mg/dL (8.4-10.2); CARBON DIOXIDE 25 mmol/L (22-29); CHLORIDE 113 mmol/L (98-107); CREATININE, SERUM 0.81 mg/dL (0.57-1.11); EST GLOMERULAR FILTRATION RATE > 60 ML/MIN (60-); GLUCOSE 123 mg/dL (74-118); POTASSIUM 3.5 mmol/L (3.5-5.1); SODIUM 146 mmol/L (136-145)
[2019-10-06] MEDS: PANTOPRAZOLE SOD 40 MG TABEC PO SCH ×2 (14:20→20:56)
--- NOTE | 2019-10-06 14:43 | NUR ---
WOUND CARE SCREENING CONSULT FOR 69 YO FEMALE HX OF NSTEMI MATEO 11 0N STRICT PUP STATUS AND INTERVENTIONS AND REGULAR VISCO MATTRESS. LABS: WBC-7.07 HGB- 10.1 GLUCOSE-151 SKIN ASSESSMENT COMPLETE -PATIENT PRESENTS WITH STAGE 2 PRESSURE ULCER TO RIGHT SACRUM MEASURING 2.0CM X 1.5CM X 0.1 CM; 95 % PINK GRANULATION 5 % YELLOW SLOUGH MIXED WITH RED BLANCHABLE PERIWOUND AND SMALL DENUDED AREAS FROM MOISTURE TO LEFT AND RIGHT PERIWOUND TO SACRUM. -RED BLANCHABLE AREAS NOTED TO BILATERAL UNDER BREAST. RECOMMENDATIONS: -NURSING TO CONTINUE TO MONITOR PATIENT AND KEEP SKIN CLEAN AND FREE FROM STOOL OR IRRITATING MOISTURE AND CONTINUE TO FOLLOW STRICT PUP INTERVENTIONS. -NURSING TO CONTINUE TO GET PATIENT OUT OF BED FOR MEALS AND MUCH TOLERATED -NURSING TO CLEAN STAGE II SACRAL ULCERATION WITH NORMAL SALINE DAILY, PAT DRY WITH 4X4 GAUZE, AND APPLY VENELEX TO OPEN AREA AND RED BLANCHABLE PERIWOUND AND DENUTED SKIN AREAS , THEN APPLY REDEMY CALAZIME SKIN BARRIER TO KARINA AREA COVER WITH AN ALLEVYN FOAM DRESSING DAILY. -NURSING TO CLEAN BILATERAL UNDERBREAST WITH NORMAL SALINE, PAT DRY WITH 4X4 GAUZE, APPLY REMEDY CALAZIME SKIN BARRIER DAILY. -NURSING TO CONTINUE TO MONITOR BILATERAL UNDER-BREAST AREAS AND STAGE II SACRAL ULCER. -NURSING TO PLACE AN ALTERNATING PRESSURE MATTRESS. -NURSING TO CONSULT WOUND CARE NEEDED. Addendum: 10/06/19 at 1451 by Kim Velazquez RN Amended: Links added.
[2019-10-06] MEDS: DICYCLOMINE HCL 10 MG CAP PO SCH ×2 (16:56→20:56)
--- NOTE | 2019-10-06 17:06 | NUR ---
Nutrition Intervention Note RD Recommendation(s) for Physician: -Continue current diet as ordered -Recommend Glucerna BID for added nutrition Plan of Care: RD following, monitoring for tolerance and adequacy Nutrition reason for involvement: Nutrition Risk Trigger MST 2 RD Assessment (10/06/19) Pt is a 69 year old female admitted with NSTEMI and UTI. Pt appeared to be confused at time of visit. It is noted that pt only consumed 25% of breakfast this morning. Per wound care note, pt has a stage 2 sacral pressure ulcer. Pts weight has appeared stable since last admission in June 2019 per weight history in chart. Provided recommendation to RN. Will continue to monitor. Principal Problems/Diagnoses: NSTEMI and UTI PMH: diabetes, HTN, obesity, cholecystectomy, weakness and debility, possible multiple myeloma GI: last recorded BM 10/05 Skin: stage 2 sacral pressure ulcer Labs: (10/05) Na 146, Glu 123 Meds: protonix, insulin, levothyroxin, lipitor Ht: 65 inches Wt: 238 lbs BMI: 39.6 kg/m2 IBW: 125 lbs Malnutrition Evaluation (10/06/19) The patient does not meet criteria for a specified degree of malnutrition at this time. Will re-evaluate at follow-up as appropriate. Nutrition Prescription (Diet Order): cardiac diet Estimated Nutritional Needs: [id number] calories/day (22-25 kcal/kg IBW) 85-114 g protein/day (1.5-2 g pro/kg IBW) Diet Adequacy: Not meeting calorie needs, Not meeting protein needs Tolerance: Tolerating PO Diet Education Needs Assessment: Diet education not indicated at this time Nutrition Care Level: low Nutrition Diagnosis: Increased nutrient needs related to increased demand for protein and kcal as evidenced by stage 2 sacral pressure ulcer Goal: Patient will meet 75-100% of estimated needs by follow up Progress: N/A Interventions: - fat/cholesterol/sodium - modified diet, Commercial beverage Monitoring/Evaluation: -Total energy intake, Total protein intake, Modified diet, Liquid supplement, Weight change Signed: Riana Mendez RD, LD
[2019-10-06] MEDS ORDERED: HYDROCODONE/APAP 5MG-325MG TAB PO PRN (18:30)
[2019-10-06] MEDS ORDERED: ACETAMINOPHEN 325 MG TAB PO PRN (18:30)
--- NOTE | 2019-10-06 19:25 | NUR ---
received report from day nurse. patient is resting comfortably in the bed. bed is in lowest position and call light is within reach. patient denies pain or discomfort. will continue to monitor patient.
[2019-10-07] VITALS (8 sets, daily range): BP systolic 113–147; BP diastolic 50–65
[2019-10-07] MEDS: LEVOTHYROXINE SODIUM 50 MCG TAB PO SCH (05:33)
[2019-10-07 06:31] LABS: BASOPHILS % 0.2 % (0.0-1.0); EOSINOPHILS # (AUTO) 0.1 (0.0-0.4); EOSINOPHILS % 3.2 % (0.0-6.0); HEMATOCRIT 27.4 % (34.2-44.1); HEMOGLOBIN 8.3 g/dL (12.0-16.0); LYMPHOCYTES % 24.6 % (18.0-39.1); MEAN CORPUSCULAR HEMOGLOBIN 31.4 pg (28-32); MEAN CORPUSCULAR HGB CONC 30.3 g/dL (31-35); MEAN CORPUSCULAR VOLUME 103.8 fL (81-99); MONOCYTES # (AUTO) 0.4 (0.2-0.8); MONOCYTES % 10.7 % (4.4-11.3); NEUTROPHILS # (AUTO) 2.5 (2.1-6.9); NEUTROPHILS % 60.8 % (38.7-80.0); PLATELET COUNT 126 x10e3/uL (140-360); RED BLOOD COUNT 2.64 x10e6/uL (3.6-5.1); RED CELL DISTRIBUTION WIDTH 16.6 % (11.7-14.4)
[2019-10-07 06:59] LABS: ALANINE AMINOTRANSFERASE 41 IU/L (0-55); ALBUMIN 2.9 g/dL (3.5-5.0); ALBUMIN/GLOBULIN RATIO 0.8 (0.8-2.0); ALKALINE PHOSPHATASE 26 IU/L (40-150); BLOOD UREA NITROGEN 14 mg/dL (7-26); BUN/CREATININE RATIO 18 (6-25); CALCIUM 9.3 mg/dL (8.4-10.2); CARBON DIOXIDE 23 mmol/L (22-29); CHLORIDE 112 mmol/L (98-107); CHOL/HDL RATIO 5.5 (3.0-3.6); CHOLESTEROL 143 MD/DL (0-199); CREATININE, SERUM 0.77 mg/dL (0.57-1.11); EST GLOMERULAR FILTRATION RATE > 60 ML/MIN (60-); GLUCOSE 93 mg/dL (74-118); HDL CHOLESTEROL 26 MG/DL (40-60); LDL CHOLESTEROL 96 MG/DL (60-130); SODIUM 146 mmol/L (136-145); TRIGLYCERIDES 104 MG/DL (0-149)
--- NOTE | 2019-10-07 07:11 | NUR ---
report given to morning nurse. bedside shift report complete. patient is resting in bed. bed is in lowest position and call light is within reach.
[2019-10-07] MEDS: INSULIN REGULAR, HUMAN 100 UNIT/1 ML 3ML VIAL SQ SCH ×7 (07:30→21:00)
[2019-10-07] MEDS: PANTOPRAZOLE SOD 40 MG TABEC PO SCH ×2 (09:34→20:50)
[2019-10-07] MEDS: DICYCLOMINE HCL 10 MG CAP PO SCH ×4 (09:34→20:50)
[2019-10-07] MEDS: ATORVASTATIN 20 MG TAB PO SCH (09:35)
[2019-10-07] MEDS: FENOFIBRATE 145 MG TAB PO SCH (09:35)
[2019-10-07] MEDS: MIRTAZAPINE 15 MG TAB PO SCH (09:35)
[2019-10-07] MEDS: BALSAM PERU/CASTOR OIL 60 GM OINT...G. TP SCH (09:35)
[2019-10-07] MEDS ORDERED: POTASSIUM CHLORIDE 20 MEQ TAB CR PO ONE (11:30)
--- NOTE | 2019-10-07 15:22 | Progress Note ---
DATE: Internal Medicine Progress Note SUBJECTIVE: The patient . No complaints today. PHYSICAL EXAMINATION: VITAL SIGNS: Blood pressure 117/50, temperature 98.6, heart rate 65 per minute, respiratory rate 20 per minute, and oxygen saturation 98%. HEART: Showed regular rhythm. Normal S1 and S2 sound. LUNGS: Clear bilaterally. ABDOMEN: Soft. EXTREMITIES: Show no edema. LABORATORY DATA: On the blood work, we have BMP; sodium 146, potassium 3.0, chloride 112, CO2 23, BUN 14, creatinine 0.77, glucose 93, last glucose 115, and calcium 9.3. AST 21, ALT 41, and alkaline phosphatase 26. Total protein 6.4 and albumin 2.9. HDL cholesterol 26, cholesterol HDL ratio 5.5, total cholesterol 143, LDL 96. Urine culture showed negative final report is pending. FINAL IMPRESSION: 1. Syncope. 2. Uncontrolled diabetes mellitus type 2. 3. Acute anemia. 4. Obesity. 5. Paroxysmal atrial fibrillation. 6. Urinary tract infection. 7. Hypothyroidism. PLAN OF TREATMENT: Continue Tylenol 650 mg q.4 hours as needed for pain or fever, Lipitor 20 mg daily, Balsam [place]/castor oil one application daily to open area, D50 push as needed for hypoglycemia, Bentyl 10 mg before meals, fenofibrate 145 mg daily, [place] 5/325 q.4 hours as needed for jysbbxeo-ro-ktjcrt pain. Continue Humalog 5 units before each meal. Potassium has been replaced with potassium 20 mEq IV x1, Synthroid 50 mcg daily, Remeron 7.5 mg daily, Protonix 40 mg twice a day and regular insulin before meals and at bedtime. I am going to start her on ciprofloxacin due to the fact that the patient has some evidence of UTI. We are waiting for the final report of the cultures. In the meantime, blood count is certainly low today compared to before. We are willing stool guaiac x3 to make sure there is not any further drop. Dr. David Larios has been consulted from the Gastroenterology point of view. Anibal Navarro MD L[facility]/MODL /[id number]
--- NOTE | 2019-10-07 16:23 | NUR ---
Called Consult with Dr Saravanan Larios. patient resting in bed, not in any distress
[2019-10-07] MEDS: CIPROFLOXACIN 250 MG TAB PO SCH (17:10)
[2019-10-08] VITALS (8 sets, daily range): BP systolic 122–140; BP diastolic 44–72
[2019-10-08 03:08] LABS: FERRITIN 259.32 ng/mL (4.63-204.00)
[2019-10-08] MEDS: LEVOTHYROXINE SODIUM 50 MCG TAB PO SCH (05:25)
--- NOTE | 2019-10-08 06:42 | NUR ---
PATIENT IS RESTING IN BED. NO SIGNS OF DISTRESS NOTED. BED IS IN LOWEST POSITION AND CALL LIGHT IS WITHIN REACH.
[2019-10-08 07:10] LABS: BASOPHILS % 0.5 % (0.0-1.0); EOSINOPHILS # (AUTO) 0.2 (0.0-0.4); EOSINOPHILS % 4.1 % (0.0-6.0); HEMATOCRIT 26.3 % (34.2-44.1); HEMOGLOBIN 8.4 g/dL (12.0-16.0); LYMPHOCYTES # (AUTO) 1.2 (1.0-3.2); MEAN CORPUSCULAR HEMOGLOBIN 32.7 pg (28-32); MEAN CORPUSCULAR HGB CONC 31.9 g/dL (31-35); MEAN CORPUSCULAR VOLUME 102.3 fL (81-99); MONOCYTES # (AUTO) 0.5 (0.2-0.8); MONOCYTES % 10.5 % (4.4-11.3); NEUTROPHILS # (AUTO) 2.5 (2.1-6.9); PLATELET COUNT 127 x10e3/uL (140-360); RED BLOOD COUNT 2.57 x10e6/uL (3.6-5.1); RED CELL DISTRIBUTION WIDTH 15.9 % (11.7-14.4)
[2019-10-08 07:25] LABS: INR 1.15; PROTHROMBIN TIME 15.4 seconds (11.9-14.5)
[2019-10-08] MEDS: INSULIN REGULAR, HUMAN 100 UNIT/1 ML 3ML VIAL SQ SCH ×7 (07:30→20:35)
[2019-10-08 07:32] LABS: ALANINE AMINOTRANSFERASE 36 IU/L (0-55); ALBUMIN 2.7 g/dL (3.5-5.0); ALBUMIN/GLOBULIN RATIO 0.8 (0.8-2.0); ANION GAP 11.2 mmol/L (8-16); BLOOD UREA NITROGEN 12 mg/dL (7-26); BUN/CREATININE RATIO 16 (6-25); CALCIUM 8.9 mg/dL (8.4-10.2); CARBON DIOXIDE 23 mmol/L (22-29); CHLORIDE 112 mmol/L (98-107); CREATININE, SERUM 0.77 mg/dL (0.57-1.11); EST GLOMERULAR FILTRATION RATE > 60 ML/MIN (60-); GLUCOSE 87 mg/dL (74-118); POTASSIUM 3.2 mmol/L (3.5-5.1); SODIUM 143 mmol/L (136-145)
[2019-10-08 07:40] LABS: ALKALINE PHOSPHATASE 27 IU/L (40-150)
[2019-10-08] MEDS: PANTOPRAZOLE SOD 40 MG TABEC PO SCH ×2 (08:49→20:42)
[2019-10-08] MEDS: ATORVASTATIN 20 MG TAB PO SCH (08:49)
[2019-10-08] MEDS: CIPROFLOXACIN 250 MG TAB PO SCH ×2 (08:49→17:09)
[2019-10-08] MEDS: FENOFIBRATE 145 MG TAB PO SCH (08:49)
[2019-10-08] MEDS: MIRTAZAPINE 15 MG TAB PO SCH (08:49)
[2019-10-08] MEDS: DICYCLOMINE HCL 10 MG CAP PO SCH ×4 (08:49→20:42)
[2019-10-08] MEDS: BALSAM PERU/CASTOR OIL 60 GM OINT...G. TP SCH (08:49)
[2019-10-08] MEDS: POTASSIUM CHLORIDE 20 MEQ TAB CR PO SCH ×2 (13:01→17:10)
--- NOTE | 2019-10-08 13:25 | Progress Note ---
DATE: Internal Medicine Progress Note SUBJECTIVE: The patient is doing well. No significant complaints. She is feeling well. PHYSICAL EXAMINATION: HEART: Showed regular rhythm. Normal S1 and S2 sound. LUNGS: Clear bilaterally. ABDOMEN: Soft. VITAL SIGNS: Blood pressure is 130/72, temperature 97.4, heart rate 79 per minute, respiratory rate 18 per minute, and oxygen saturation 100%. LABORATORY DATA: We have a CBC; white blood count 4.40, hemoglobin 8.4, hematocrit 23.3, and platelet count 127,000. On the BMP; sodium 143, potassium 3.2, chloride 112, carbon dioxide 23, BUN 12, creatinine 0.77, GFR of 60, glucose 87, and calcium 8.9. Iron 26, TIBC 256, iron saturation 10%, transferrin 183, and ferritin 259.32. Total bilirubin 0.5, AST 23, ALT 36, and alkaline phosphatase 27. Total protein 6.1, albumin 2.7, globulin 3.4, . FINAL IMPRESSION: 1. Episode of syncope. 2. Uncontrolled diabetes mellitus type 2. 3. Acute anemia. 4. Obesity. 5. Urinary tract infection. 6. Paroxysmal atrial fibrillation. 7. Hypothyroidism. PLAN OF TREATMENT: We are going to continue the current medication regimen, which include Tylenol 650 mg q.4 hours as needed for mild pain or fever, Lipitor 20 mg daily, Balsam [place]/castor oil one application daily for open wound, ciprofloxacin 250 mg twice a day for UTI, D50 push as needed for hypoglycemia, Bentyl 10 mg before meals and at bedtime, fenofibrate 145 mg daily, and [place] 5/325 mg tablet q.4 hours as needed for moderate pain. Continue Humalog 5 units before meals, Synthroid 50 mcg daily, Remeron 7.5 mg daily, Protonix 40 mg twice a day, and potassium chloride 40 mEq q.6 x2 doses because of hypokalemia. Continue monitoring blood sugar before meals and at bedtime. We have ordered some BMP for tomorrow. Her magnesium was 1.4. MD RUIZ Galeano/AIXA /[id number]
--- NOTE | 2019-10-08 18:24 | NUR ---
patient resting in bed, Alert with No Distress, call light in reach
--- NOTE | 2019-10-08 19:30 | NUR ---
RECEIVED REPORT FROM DAY NURSE. PATIENT IS RESTING COMFORTABLY IN THE BED. BED IS IN THE LOWEST POSITION AND CALL HARRY IS WITHIN REACH. WILL CONTINUE TO MONITOR PATIENT.
[2019-10-09] VITALS (8 sets, daily range): BP systolic 124–144; BP diastolic 48–63
[2019-10-09] MEDS ORDERED: CYANOCOBALAMIN INJ 1,000 MCG/ML VIAL IM ONE (00:15)
[2019-10-09] MEDS: LEVOTHYROXINE SODIUM 50 MCG TAB PO SCH (05:24)
[2019-10-09 06:19] LABS: ANION GAP 11.9 mmol/L (8-16); BLOOD UREA NITROGEN 9 mg/dL (7-26); BUN/CREATININE RATIO 13 (6-25); CALCIUM 8.7 mg/dL (8.4-10.2); CARBON DIOXIDE 22 mmol/L (22-29); CHLORIDE 112 mmol/L (98-107); CREATININE, SERUM 0.72 mg/dL (0.57-1.11); EST GLOMERULAR FILTRATION RATE > 60 ML/MIN (60-); GLUCOSE 98 mg/dL (74-118); POTASSIUM 3.9 mmol/L (3.5-5.1); SODIUM 142 mmol/L (136-145)
--- NOTE | 2019-10-09 06:51 | NUR ---
PATIENT IS RESTING IN BED. NO SIGNS OF DISTRESS NOTED. BED IS IN LOWEST POSITION AND CALL LIGHT IS WITHIN REACH.
[2019-10-09] MEDS: INSULIN REGULAR, HUMAN 100 UNIT/1 ML 3ML VIAL SQ SCH ×7 (07:30→21:00)
--- NOTE | 2019-10-09 07:40 | NUR ---
PATIENT IS ALERT TO SELF AND IS IN STABLE CONDITION WITH NO S/S OF RESPIRATORY DISTRESS. NO PAIN VOICED. TELEMETRY APPLIED. ALLEVYN APPLIED TO SACRUM AND DIAPER APPLIED. BED ALARM APPLIED. CALL LIGHT IS WITHIN REACH-INSTRUCTED TO CALL FOR ASSISTANCE NEEDED.
[2019-10-09] MEDS: CYANOCOBALAMIN INJ 1,000 MCG/ML VIAL IM SCH (08:47)
[2019-10-09] MEDS: CIPROFLOXACIN 250 MG TAB PO SCH (08:47)
[2019-10-09] MEDS: ATORVASTATIN 20 MG TAB PO SCH (08:47)
[2019-10-09] MEDS: PANTOPRAZOLE SOD 40 MG TABEC PO SCH ×2 (08:47→21:59)
[2019-10-09] MEDS: FENOFIBRATE 145 MG TAB PO SCH (08:47)
[2019-10-09] MEDS: MIRTAZAPINE 15 MG TAB PO SCH (08:47)
[2019-10-09] MEDS: DICYCLOMINE HCL 10 MG CAP PO SCH ×4 (08:47→21:59)
[2019-10-09] MEDS: IRON SUCROSE 100 MG in SODIUM CHLORIDE 0.9% 100 ML 100 ML IV SCH (09:34)
[2019-10-09] MEDS ORDERED: SODIUM CHLORIDE 0.9% 250ML 250 ML ONE (14:32)
[2019-10-09] MEDS: CEFTRIAXONE SOD 1 GM/NS 50 ML 50 ML IV SCH (14:37)
[2019-10-09] MEDS: BALSAM PERU/CASTOR OIL 60 GM OINT...G. TP SCH (14:38)
--- NOTE | 2019-10-09 15:13 | NUR ---
BSE entered in error, disregard BSE, documented on wrong pt Addendum: 10/09/19 at 1514 by Analia BRAR Amended: Links added.
--- NOTE | 2019-10-09 19:16 | NUR ---
BEDSIDE SHIFT REPORT GIVEN BY DAY RN. PT ALERT AND ORIENTED X1.CONFUSED AT TIMES. RESPIRATIONS ARE EVEN AND UNLABORED. TELE ON. GT TUBE NOT BEING USED.DENIES PAIN. INCONTINENT OF BLADDER- PERICARE GIVEN . PT ATE 80% MEAL ON DAY SHIFT. WILL DISCUSS GTUBE WITH PHYSICIAN. CALL LIGHT WITHIN REACH. BED LOCKED AND IN LOW POSITION.
--- NOTE | 2019-10-09 19:33 | NUR ---
PATIENT IN STABLE CONDITION WITH NO S/S OF RESPIRATORY DISTRESS- NO PAIN VOICED. ALLEVYN AND DIAPER APPLIED. BED ALARM APPLIED. CALL LIGHT IS WITHIN REACH, INSTRUCTED TO CALL FOR ASSISTANCE NEEDED. BEDSIDE SHIFT REPORT GIVEN TO ONCOMING NURSE.
[2019-10-10] VITALS (7 sets, daily range): BP systolic 117–145; BP diastolic 44–68
[2019-10-10] MEDS: LEVOTHYROXINE SODIUM 50 MCG TAB PO SCH (05:47)
--- NOTE | 2019-10-10 06:00 | NUR ---
DR Saravanan DEUTSCH HERE. PT REQUEST GTUBE REMOVED. SISTER TO BE CALLED ABOUT GTUBE REMOVAL AND LAST COLONOSCOPY.RN TO CALL DR DEUTSCH BACK WITH INFORMATION. SISTER REPORTED PT EATTING WELL AT HOME. SISTER AGREE D/C GTUBE. SISTER REPORT HAD COLONOSCOPY 2-3 YEARS AGO AND WILL GET REPORT. FAMILY WANT ONCOLOGY CONSULT AND BONE MARROW BX DONE- NEVER DONE WHEN SENT TO SNF. FAMILY ALSO WANT NEUROLOGIST TO SEE HER FOR CONFUSION. REPORTED ALL TO DR Saravanan DEUTSCH. ORDER RECIEVED TO MAKE PT NPO AND HAVE INFORMED CONSENT SIGNED FOR EGD AND GTUBE REMOVAL. COVID TESTING TO BE DONE PRIOR TO PROCEDURE. DR Rc DEUTSCH TO DO CONSULT FOR ONCOLOGIST AND NEUROLOGIST- DAY RN TO CALL.SISTER INFORMED BY PHONE.
--- NOTE | 2019-10-10 07:00 | NUR ---
BEDSIDE SHIFT REPORT RECEIVED FROM THE NURSE OFFICE RN. BED IS LOW AND LOCKED. SIDE RAILS X2. BED ALARM IS ON. CALL LIGHT WITH IN EASY REACH. PT DENIES NEEDS AT THIS TIME.
--- NOTE | 2019-10-10 07:05 | NUR ---
PT IS ON NPO FOR EGD AND PEG TUBE REMOVAL.
--- NOTE | 2019-10-10 07:15 | NUR ---
PT IV SITE LEAKING.
[2019-10-10] MEDS: INSULIN REGULAR, HUMAN 100 UNIT/1 ML 3ML VIAL SQ SCH ×7 (07:30→21:00)
[2019-10-10] MEDS: DICYCLOMINE HCL 10 MG CAP PO SCH ×4 (07:30→21:39)
--- NOTE | 2019-10-10 08:30 | NUR ---
NIGHT RN WITNESS TELEPHONE CONSENT FOR EGD AND G TUBE REMOVAL- SISTER GAVE TELEPHONE CONSENT.
--- NOTE | 2019-10-10 08:30 | NUR ---
TELEPHONE CONSENT RECEIVED FOR EGD AND PEG TUBE REMOVAL FROM NEXT OF KIN VANESSA CARPIO (SISTER). BANK GUARD RN WITNESSED TELEPHONE CONSENT. PT SISTER VERBALIZED UNDERSTANDING AND DENIED FURTHER NEEDS.
[2019-10-10] MEDS: PANTOPRAZOLE SOD 40 MG TABEC PO SCH ×3 (09:00→21:39)
[2019-10-10] MEDS: CYANOCOBALAMIN INJ 1,000 MCG/ML VIAL IM SCH (09:00)
--- NOTE | 2019-10-10 09:41 | Diagnostic Imaging Report ---
EXAM: MODIFIED BA. SWALLOW DATE: 10/09/2019 12:09 AM INDICATION: Difficulty swallowing COMPARISON: None FINDINGS/IMPRESSION: Modified barium swallow was performed by the speech pathologist. The radiologist was not present for the examination. No images were saved. Per speech pathology report, no episodes of subglottic tracheal aspiration were visualized. Please refer to speech pathology report for further details. Signed by: Dr. Manuel Owens MD on 10/10/2019 9:37 AM
--- NOTE | 2019-10-10 10:15 | NUR ---
TO GET IV ACCESS 2 ATTEMPTS BUT NOT SUCCESSFUL. INFORMED THE SAME TO SOFTWARE PRODUCT SPECIALIST AND OR NURSE.
--- NOTE | 2019-10-10 10:45 | NUR ---
PT OFF UNIT FOR PROCEDURE IN SAFE CONDITION.
[2019-10-10] MEDS: IRON SUCROSE 100 MG in SODIUM CHLORIDE 0.9% 100 ML 100 ML IV SCH (12:30)
--- NOTE | 2019-10-10 12:30 | NUR ---
PT RECEIVED FROM OR. PT ARRIVED WITH NEW IV LEFT WRIST 20G. PEG TUBE REMOVAL COMPLETED. SITE CDI. PT DENIES NEEDS AT THIS TIME.
[2019-10-10] MEDS: ATORVASTATIN 20 MG TAB PO SCH (12:49)
[2019-10-10] MEDS: FENOFIBRATE 145 MG TAB PO SCH (12:50)
[2019-10-10] MEDS: BALSAM PERU/CASTOR OIL 60 GM OINT...G. TP SCH (12:50)
[2019-10-10] MEDS: MIRTAZAPINE 15 MG TAB PO SCH (12:51)
--- NOTE | 2019-10-10 12:51 | Operative Report ---
DATE OF PROCEDURE: 10/10/2019 SURGEON: David Larios MD PROCEDURE: An EGD with pyloric channel dilatation per TTS balloon dilators, PEG tube removal, and biopsies. INDICATIONS FOR PROCEDURE: The patient is status post PEG tube insertion, now swallowing well. For EGD and PEG tube removal. MEDICATIONS: The patient was done under MAC. Please see anesthesiologist's note. PROCEDURE IN DETAIL: With the patient in left lateral decubitus position, a flexible fiberoptic Olympus gastroscope was introduced into the esophagus under direct visualization without any difficulty. There was some patchy erythema noted in distal esophagus. The scope was then advanced with ease into the stomach traversing a small hiatal hernia. Mucosa overlying the antrum and the body revealed some patchy erythema and [id number] edema and biopsies were obtained, sent to stain for H. pylori. The pylorus was strictured and it was then dilated to size 20 mm per TTS balloon dilators. It was then traversed with the scope, which was advanced all the way to the second portion of the duodenum. Biopsies were obtained from the proximal second portion and the duodenal bulb to rule out sprue. The scope was then withdrawn back into the stomach and retroflexed. Previously described hiatal hernia was also noted in the retroflexed position. The fundus grossly appeared to be within normal limits. The scope was then straightened out. The PEG tube was then removed with the pull traction method. The scope was subsequently withdrawn. The patient tolerated the procedure well. IMPRESSION: 1. Mild distal esophagitis. 2. Small hiatal hernia. 3. Gastritis, biopsied. Biopsies sent to stain for Helicobacter pylori. 4. PEG tube removed per the usual pull traction method. 5. 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 6. Rule out sprue. PLAN: Follow up histology. Initiate Protonix 40 mg one p.o. a.c. b.i.d. David Larios MD [facility] [place] /[id number] cc: Yasmany Larios MD
[2019-10-10] MEDS: CEFTRIAXONE SOD 1 GM/NS 50 ML 50 ML IV SCH (14:34)
--- NOTE | 2019-10-10 15:05 | NUR ---
D/C IRON TRANSFUSION PER DR. Rc DEUTSCH.
[2019-10-10] MEDS ORDERED: DEXTROSE 50% SYRINGE 50 ML IV PRN (16:45)
--- NOTE | 2019-10-10 19:20 | NUR ---
BEDSIDE SHIFT REPORT RECEIVED FROM DAY RN. PT IS ALERT AND ORIENTED X2. RESPIRATIONS ARE EVEN AND UNLABORED. PT REPORTS ATE POTATOES FOR MEAL TODAY. PT TALKED TO HER SISTER ON PHONE IN ROOM TODAY. PT INCONTINENT OF BLADDER. PERICARE GIVEN AND DIAPER CHANGED. PT DENIES PAIN. CALL LIGHT WITHIN REACH. BED LOCKED AND BED IN LOW POSITION. BED ALARM ON.
--- NOTE | 2019-10-10 19:20 | NUR ---
BEDSIDE SHIFT REPORT GIVEN TO THE ROOF TRUSS BUILDER RN. PT DENIED FURTHER NEEDS.
[2019-10-10] MEDS ORDERED: LIDOCAINE HCL 2% LOCAL INJ 5 ML SDV VIAL INJ ONE (19:55)
[2019-10-10] MEDS ORDERED: PROPOFOL IV EMULSION 10 MG/ML 20 ML VIAL ONE (19:55)
[2019-10-10] MEDS ORDERED: INSULIN REGULAR, HUMAN 100 UNIT/1 ML 3ML VIAL SQ SCH (21:00)
[2019-10-11] VITALS: BP 147/69
[2019-10-11 04:00] VITALS: BP 131/51
[2019-10-11] MEDS: LEVOTHYROXINE SODIUM 50 MCG TAB PO SCH (05:57)
[2019-10-11] MEDS: INSULIN REGULAR, HUMAN 100 UNIT/1 ML 3ML VIAL SQ SCH ×6 (07:30→16:17)
[2019-10-11 08:00] VITALS: BP 143/63
[2019-10-11 08:32] VITALS: BP 143/63
[2019-10-11] MEDS: DICYCLOMINE HCL 10 MG CAP PO SCH ×3 (08:46→16:18)
[2019-10-11] MEDS: ATORVASTATIN 20 MG TAB PO SCH (08:46)
[2019-10-11] MEDS: CYANOCOBALAMIN INJ 1,000 MCG/ML VIAL IM SCH (08:46)
[2019-10-11] MEDS: MIRTAZAPINE 15 MG TAB PO SCH (08:46)
[2019-10-11] MEDS: PANTOPRAZOLE SOD 40 MG TABEC PO SCH (08:46)
[2019-10-11] MEDS: FENOFIBRATE 145 MG TAB PO SCH (08:47)
[2019-10-11] MEDS: BALSAM PERU/CASTOR OIL 60 GM OINT...G. TP SCH (08:47)
--- NOTE | 2019-10-11 10:19 | NUR ---
FAXED CLINICALS TO [facility], WAITING ON AUTH
[2019-10-11 12:00] VITALS: BP 133/58
--- NOTE | 2019-10-11 12:12 | NUR ---
WOUND CARE CONSULT FOR PATIENT FOLLOW UP DONE Addendum: 10/11/19 at 1217 by Jamir Guerrero RN Amended: Links added.
[2019-10-11] MEDS: CEFTRIAXONE SOD 1 GM/NS 50 ML 50 ML IV SCH (13:54)
--- NOTE | 2019-10-11 14:48 | NUR ---
Patient's IV infilitrated. IV was removed and covered with dry dressing. New IV was placed in the right hand 22gauge. Will continue to monitor.
--- NOTE | 2019-10-11 15:30 | NUR ---
USP FACILITY DISCHARGE INFORMATION PATIENT HAS BEEN ACCEPTED TO: NAME: RUMA SHAW ADDRESS:[id number] [place] [address] ACCEPTING CADDIE: JUSTIN ESQUIVEL ACCEPTING MD: LA NENA ROOM:[id number] [address] NURSE CALL REPORT TO: [phone] IMM SIGNED AND OBTAINED (if applicable): IMM THE FOLLOWING DOCUMENTS MUST ACCOMPANY PATIENT FOR TRANSFER: COPIED CHART: PACKET
[2019-10-11 16:00] VITALS: BP 130/63
--- NOTE | 2019-10-11 16:09 | NUR ---
Patient received discharge order from Dr. Yesi Larios. Patient is transferring to [facility]. Patient report was given to SHANEKA Land at 1603. Patient is transferring with all of her current medications, including IV medications. Patient is transferring with R hand 22g IV. Patient has no other issues or complaints. EMS transport was called at 1611. Will update when patient leaves with EMS. Addendum: 10/11/19 at 1833 by Mahnaz Garcia RN Patient left with EMS at 1826. Patient had no issues or complaints at this time.
[2019-10-13 06:09] LABS: ENDOMYSIAL ANTIBODIES, IGA Negative (Negative)
== END 2019-10-11 18:26 | DRG 871 ==
LOC: ER 13:02 → ERHOLD 15:55 → MED/SURG3 19:00
PROC: 0D768ZZ Dilation of Stomach, Via Natural or Artificial Opening Endoscopic (ICD-10-PCS; 2019-10-10)
PROC: 0DB98ZX Excision of Duodenum, Via Natural or Artificial Opening Endoscopic, Diagnostic (ICD-10-PCS; principal; 2019-10-10 11:11)
PROC: 0DB78ZX Excision of Stomach, Pylorus, Via Natural or Artificial Opening Endoscopic, Diagnostic (ICD-10-PCS; 2019-10-10 11:11)
DX: A41.9 Sepsis, unspecified organism (principal); N18.6 End stage renal disease; N39.0 Urinary tract infection, site not specified; I12.0 Hypertensive chronic kidney disease with stage 5 chronic kidney disease or end stage renal disease; D62 Acute posthemorrhagic anemia; I48.0 Paroxysmal atrial fibrillation; R55 Syncope and collapse; E11.22 Type 2 diabetes mellitus with diabetic chronic kidney disease; Z99.2 Dependence on renal dialysis; Z79.4 Long term (current) use of insulin; E66.9 Obesity, unspecified; Z68.39 Body mass index [BMI] 39.0-39.9, adult; E03.9 Hypothyroidism, unspecified; K20.9 Esophagitis, unspecified; K29.70 Gastritis, unspecified, without bleeding; K44.9 Diaphragmatic hernia without obstruction or gangrene; K22.2 Esophageal obstruction; E11.65 Type 2 diabetes mellitus with hyperglycemia; L89.152 Pressure ulcer of sacral region, stage 2
CPT/HCPCS: 36415; 43233; 43239; 70450; 71045; 74230; 80048; 80053; 80061; 81001; 82270; 82550; 82553; 82607; 82728; 82746; 82784; 82948; 83036; 83516; 83540; 83735; 84443; 84466; 84484; 85025; 85045; 85610; 86256; 87086; 87186; 87635; 88305; 88312; 93005; 93306; 93880; 97139; 99251; 99284; J0696; J1756; J1817; J2001; J3420; J7050

== ENCOUNTER → 2019-12-06 | Day surgery (SDC) | payer MEDICARE, OTHER ==
[~2019-12-06] MED LIST changes: +FENTANYL CITRATE/PF 100MCG/2 ML INJ ONE; +LIDOCAINE HCL 2% LOCAL INJ 5 ML SDV VIAL INJ ONE; +NAMENDA5 MG PO; +PROPOFOL IV EMULSION 10 MG/ML 20 ML VIAL ONE
[2019-12-06 08:00] LABS: BASOPHILS % 0.4 % (0.0-1.0); EOSINOPHILS # (AUTO) 0.3 (0.0-0.4); EOSINOPHILS % 4.9 % (0.0-6.0); HEMATOCRIT 34.9 % (34.2-44.1); HEMOGLOBIN 10.8 g/dL (12.0-16.0); LYMPHOCYTES # (AUTO) 0.9 (1.0-3.2); LYMPHOCYTES % 17.7 % (18.0-39.1); MEAN CORPUSCULAR HEMOGLOBIN 30.6 pg (28-32); MEAN CORPUSCULAR HGB CONC 30.9 g/dL (31-35); MEAN CORPUSCULAR VOLUME 98.9 fL (81-99); MONOCYTES # (AUTO) 0.4 (0.2-0.8); MONOCYTES % 7.9 % (4.4-11.3); NEUTROPHILS # (AUTO) 3.5 (2.1-6.9); NEUTROPHILS % 68.9 % (38.7-80.0); PLATELET COUNT 219 x10e3/uL (140-360); RED BLOOD COUNT 3.53 x10e6/uL (3.6-5.1); RED CELL DISTRIBUTION WIDTH 13.2 % (11.7-14.4)
[2019-12-06 09:50] VITALS: BP 144/69
--- NOTE | 2019-12-06 09:50 | Operative Report ---
DATE OF PROCEDURE: 12/06/2019 SURGEON: David Larios MD PROCEDURE: EGD with pyloric channel dilatation and biopsies. INDICATIONS FOR EGD: Melena, history of gastric ulcer, history of pyloric channel stricture. MEDICATIONS: The patient was done under MAC. Please see anesthesiologist's note. PROCEDURE IN DETAIL: With the patient in left lateral decubitus position, flexible fiberoptic Olympus gastroscope was introduced into the esophagus under direct visualization without any difficulty. There was some patchy erythema noted in the distal esophagus. The scope was then advanced with ease into the stomach, traversing a small sliding hiatal hernia. Mucosa overlying the antrum and the body revealed some patchy erythema and moderate edema. Biopsies were obtained, sent to stain for H pylori. The pyloric channel was strictured and was traversed with difficulty with the scope. It was dilated to size 20 mm per TTS balloon dilators. The scope was then advanced with ease into the second portion of the duodenum. Biopsies were obtained from the proximal second portion and duodenal bulb to rule out sprue considering the patient's history of chronic diarrhea. The scope was then withdrawn back into the stomach and retroflexed mucosa overlying the fundus and cardia appeared to be within normal limits. The scope was then straightened out, it was subsequently withdrawn. The patient tolerated the procedure well. IMPRESSION: 1. Distal esophagitis, mild. 2. Small sliding hiatal hernia. 3. Gastritis, biopsied. Biopsies sent to stain for H pylori. 4. 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 5. Rule out sprue. PLAN: Follow up histology. Continue Protonix 40 mg one p.o. a.c. b.i.d. Add Carafate 1 g p.o. a.c. t.i.d. and at bedtime. David Larios MD [facility] /[id number] cc: Yasmany Larios MD
== END | disposition home or self-care (01) ==
LOC: OR 06:17
PROVIDERS: ATTEND Internal Medicine Gastroenterology
DX: K25.4 Chronic or unspecified gastric ulcer with hemorrhage (principal); K29.70 Gastritis, unspecified, without bleeding; K31.1 Adult hypertrophic pyloric stenosis; K29.80 Duodenitis without bleeding; K20.9 Esophagitis, unspecified; K44.9 Diaphragmatic hernia without obstruction or gangrene; R19.7 Diarrhea, unspecified; I10 Essential (primary) hypertension; E11.9 Type 2 diabetes mellitus without complications; E03.9 Hypothyroidism, unspecified; D64.9 Anemia, unspecified; F03.90 Unspecified dementia, unspecified severity, without behavioral disturbance, psychotic disturbance, mood disturbance, and anxiety; Z88.1 Allergy status to other antibiotic agents; Z88.8 Allergy status to other drugs, medicaments and biological substances; Z79.4 Long term (current) use of insulin
CPT/HCPCS: 36415; 43239; 43245; 82948; 85025; 88305; 88312; C1726; J2001; J2704; J3010; 43233